=== PATIENT | male | born 1950 | race Caucasian/White ===

== ENCOUNTER 2018-01-08 17:52 | Inpatient (IN) | payer MEDICARE ==
[~2018-01-08] VITALS: Ht 185.4 cm; Wt 90.3 kg
--- NOTE | ~2018-01-08 | EC ---
PATIENT:JERAMY DUBOIS DATE OF SERVICE: 01/08/18 SEX: M MEDICAL RECORD: [id number] DATE OF : 54 LOCATION:D[facility] AGE OF PATIENT: 67 ADMISSION DATE: 01/08/18 REFERRING PHYSICIAN: INTERPRETING PHYSICIAN: JACOB PRICE MD ECHOCARDIOGRAM REPORT ECHO CHARGES 4 ECHO COMPLETE Date: 01/11 CLINICAL DIAGNOSIS: SEPESIS, ASSESS FOR ENDOCARDITIS ECHOCARDIOGRAPHIC MEASUREMENTS (adult normal given) AC root (d.<3.7cm) 4.1 cm LV Septum d (<1.2 cm> 1.3 cm Valve Excursion 1.9 cm LV Septum (systole) 1.4 cm Left Atria (s.<4.0cm> 4.4 cm LVPW d(<1.2cm) 1.3 cm RV (d.<2.3cm) 3.2 cm LVPW (sytole) 1.5 cm LV diastole(<5.6CM) 4.8 cm MV E-F(>70mm/sec) cm LV systole 2.8 cm LVOT Diameter 1.8 cm MV exc.(>10mm) 2.3 cm Est.ejection fraction (50-75%) % DOPPLER: LVIT cm/sec A 83.0 cm/sec E 74.0 cm/sec LA cm/sec RVSP 50 mmHg LVOT 108 cm/sec AOP1/2T m/s Asc. Ao 123 cm/sec RVOT 985 cm/sec RA cm/sec PA 122 cm/sec AV Gradient Peak 6.07 mmHg AV Mean 3.44 mmHg AV Area 1.9 cm MV Gradient Peak 6.19 mmHg MV Mean 2.35 mmHg MV Area cm COMMENTS: Account Auditor: Carolina QUIROGA Men'S Basketball Coach: 2 Dr. Cole TAPE# PACS Pericardial Effusion N DATE OF SERVICE: 01/10/2018 FINDINGS: 1. Left ventricular chamber size is within normal limits. Left ventricular systolic function is normal. Overall ejection fraction estimated at 60%. 2. Left atrium is mildly dilated at 4.4 cm. Right atrium and right ventricle chamber sizes are within normal limits. 3. Valvular structures have normal structure and motion. No evidence of vegetative endocarditis. 4. Doppler interrogation reveals mild mitral regurgitation, mild tricuspid ECHOCARDIOGRAM REPORT [id number] JERAMY DUBOIS regurgitation, no other valvular insufficiency or stenosis. Pulmonary systolic pressure is mildly elevated at 50 mmHg. 5. No evidence of pericardial effusion or left ventricular thrombus. TRANSINT:[id number] Voice Confirmation ID: [id number] DOCUMENT ID: [id number] JACOB PRICE MD at 1614 CC: [id number] DICTATION DATE: 01/10/18 1506 CORONARY CARE UNIT NURSE: 01/10/18 1520 ADM IN [facility] [address] [place] [address]
--- NOTE | ~2018-01-08 | CN ---
PATIENT NAME:JERAMY MOHAMUD MEDICAL RECORD: [id number] : 54 LOCATION:[facility] ADMIT DATE: 01/08/18 ACCOUNT: [id number] CONSULTING PHYSICIAN: ERIC SALAMANCA MD REFERRING PHYSICIAN: MARCI MARADIAGA MD DATE OF CONSULTATION: 01/09/2018 CONSULT REQUESTING PHYSICIAN: Marci Meyers MD REASON FOR CONSULTATION: Pneumonia, left lower lobe. HISTORY OF PRESENT ILLNESS: Mr. Mohamud is a 67-year-old gentleman who has functional quadriplegia. The patient was brought into the ER yesterday with somnolence, feeling weak, and confusion. Workup showed the patient has an infiltrate in the left lower lobe with significant leukocytosis. Now, the patient is not very communicative, history was taken by reviewing the patient's note and talking to Dr. Meyers. REVIEW OF SYSTEMS: As in history of present illness. PAST MEDICAL HISTORY: 1. Quadriplegia. 2. Anxiety, depression. PAST SURGICAL HISTORY: 1. He has halo and plate placement in the neck 9 years ago. 2. He has a PEG tube insertion and removal. ALLERGIES: No known drug allergy. MEDICATIONS: On Meetrics is reviewed. PERSONAL AND SOCIAL HISTORY: The patient is a nonsmoker, nondrinker. FAMILY HISTORY: Noncontributory. PHYSICAL EXAMINATION: GENERAL: Now, the patient is lying comfortably in bed. He is not in acute distress. VITAL SIGNS: The blood pressure is 119/59, pulse is 85, respirations 22, temperature 99, SPO2 92% on 3.5 liter nasal cannula. HEENT: Conjunctivae are pink. Sclerae are not icteric. NECK: Supple, no JVD. CHEST: The chest excursion is minimal on both sides. Crackles at the left base. No wheezing. HEART: Rhythm regular, normal sound, no murmur. ABDOMEN: Soft, bowel sounds present. No hepatosplenomegaly. RECTAL: Deferred. EXTREMITIES: No cyanosis, no clubbing. CENTRAL NERVOUS SYSTEM: The patient has functional quadriplegia. CHEST RADIOGRAPH: There is infiltrate in the left lower lobe. LABORATORY DATA: CBC: The WBC is 29.2, hemoglobin is 15.6, hematocrit 46.5, the platelet count is 239. Chemistry: Sodium 131, potassium 4.6, BUN is 34, CONSULT REPORT [id number] JERAMY MOHAMUD and creatinine 2.3. IMPRESSION: 1. Acute hypoxic respiratory failure. 2. Pneumonia, left lower lobe, most likely community-acquired pneumonia. 3. Leukocytosis secondary to pneumonia. 4. Chronic urinary tract infection. 5. Chronic kidney disease. 6. Kidney stone. RECOMMENDATIONS: 1. Continue the Rocephin and Levaquin IV. 2. Supplemental oxygen as required. 3. Followup labs and chest radiograph. 4. DVT prophylaxis. Dr. Maradiaga, thank you for involving me in the care of Mr. Mohamud. TRANSINT:[id number] Voice Confirmation ID: [id number] DOCUMENT ID: [id number] ERIC SALAMANCA MD at 1218 CC: [id number] DICTATION DATE: 01/09/181713 CATEGORY ANALYST: 01/09/18 1821 ADM IN [place] [id number] [place] [id number]
--- NOTE | ~2018-01-08 | OP ---
PATIENT NAME: JERAMY DUBOIS MEDICAL RECORD: [id number] :54 LOCATION:D[facility] D.2303 ADMISSION DATE:01/08/18 SURGEON: JOSE HOLLAND MD DATE OF OPERATION: 01/25/2018 PREOPERATIVE DIAGNOSES: 1. Acute malnutrition. 2. Ventilatory failure. 3. Pneumonia. POSTOPERATIVE DIAGNOSES: 1. Acute malnutrition. 2. Ventilatory failure. 3. Pneumonia. 4. Moderate auguste-gastritis with erosions. 5. Thick mucopurulent debris, mainly involving the right lung. PROCEDURES: 1. Esophagogastroduodenoscopy with antral biopsies. 2. Percutaneous endoscopic gastrostomy tube placement, 20 Croatian. 3. Diagnostic and therapeutic bronchoscopy with bronchoalveolar lavage. 4. Percutaneous tracheostomy placement, 8 mm. SURGEON: Jose Holland MD ASSEMBLER TRIM: None. BLOOD LOSS: Minimal. ANESTHESIA: General. COMPLICATIONS: None. The risks, possible complications and alternatives to procedure were explained to the patient. He elects to proceed. Discussion specifically included, but was not limited to, bleeding requiring emergency reoperation, infection, endoscopic perforation, gastrostomy tube dislodgement, tracheostomy tube dislodgement. OPERATIVE COURSE: The patient was conveyed to the operating room electively on 01/25/2018. General anesthesia was induced by the anesthesia staff. A bite-block was inserted. A gastroscope was inserted into the mouth. It was advanced easily into the hypopharynx. The esophagus was easily intubated as were the stomach and duodenum. Upon withdrawal, retroflexed and angulus views were obtained. Antral biopsies were obtained. I then cleansed the anterior abdominal wall skin. The patient had a prior gastrostomy tube. This area was infiltrated with a local anesthetic. A skin incision was accomplished. I then advanced an Angiocath down through the prior gastrostomy tube scar. I entered the stomach on the first try. A guidewire was advanced down through the Angiocath. This was grasped with an endoscopic snare and was withdrawn out through the mouth. The wire was then attached to a pull-type gastrostomy tube, which was then pulled into place. Hub and flange devices were attached. I re-endoscoped the patient's esophagus and stomach. There had been no evidence of false passage or perforation. OPERATIVE REPORT [id number] JERAMY DUBOIS Attention was then turned to placement of the tracheostomy tube. The bronchoscopic adapter was applied due to the endotracheal tube. A well-lubricated bronchoscope was advanced down the endotracheal tube. I first examined the right lung. The mucopurulent material was quite thick. I did a lot of lavage with normal saline. I did this until all of the segmental bronchi were freed of mucopurulent material. I then examined the left lung. There was not so much mucopurulent debris on the left side. I lavaged all the segmental bronchi until they were clear. I then returned to the open operation. A skin incision was closed after sterile prep and drape of the neck. This was a midline skin incision. It was a small incision. I dissected down to the trachea. I identified the second tracheal ring. A tracheal hook was applied in the cricoid cartilage to elevate the cricoid cartilage. I then had the nurse electronic maintenance supervisor withdraw the bronchoscope and the endotracheal tube as a unit. I indented the anterior wall of the trachea. I was able to visualize this bronchoscopically. I then punctured the anterior wall of the trachea below the second ring. I did this with an Angiocath. The guidewire was passed easily and this was passed in a caudad direction. I then dilated sequentially over the wire. A percutaneous tracheostomy tube that was placed on an introducer was advanced over the wire. This was advanced down to the trachea and the balloon was inflated. The introducer and the wire were removed. I then performed a bronchoscopy through the tracheostomy tube ensuring adequate placement. It was adequately placed. The inner cannula was applied as well as corrugated tubing and we began to ventilate the patient through the tracheostomy. The flange of the tracheostomy was sutured to the underlying skin with 2-0 nylons. I then closed some of the skin around the tracheostomy tube with 3-0 Vicryls. A fibrin glue material was then applied subcutaneously around the tracheostomy tube for additional hemostasis. The patient was then conveyed to the intensive care unit in critical, but stable condition. TRANSINT:[id number] Voice Confirmation ID: [id number] DOCUMENT ID: [id number] JOSE HOLLAND MD at 1840 CC: [id number] DICTATION DATE: 01/25/18 171 TIP PUNCHER: 01/25/18 1834 [facility] [address] [place] [address]
[~2018-01-08 17:52] MED LIST: AVODART0.5 MG PO; BACLOFEN20 M1 PO; CLEOCIN HCL300 MG PO; FLOMAX0.4 MG PO; HYDROCODONE-APA1 TAB PO; PHENERGAN25 M1 PO; REMERON15 MG PO; SOMA250 MG PO; XANAX0.25 MG PO
[2018-01-08] MEDS ORDERED: OMEPRAZOLE20 M1 PO (18:58)
[2018-01-08 19:00] VITALS: BP 108/56
[2018-01-08 20:00] VITALS: BP 111/57
[2018-01-08 21:00] VITALS: BP 108/57
[2018-01-08 21:18] LABS: ALBUMIN 2.7 g/dL (3.4-5.0); ANION GAP 14.8 mmol/L (8-16); BILIRUBIN - TOTAL 1.12 mg/dL (0.2-1.3); CALCIUM 9.4 mg/dL (8.5-10.1); CARBON DIOXIDE 27.8 mmol/L (21.0-32.0); CREATININE - SERUM 2.3 mg/dL (0.6-1.3); POTASSIUM - SERUM 4.6 mmol/L (3.5-5.1); PROTEIN - SERUM 7.5 g/dL (6.4-8.2)
[2018-01-08 21:46] LABS: APPEARANCE HAZY (CLEAR); BILIRUBIN NEGATIVE (NEGATIVE); COLOR YELLOW (YELLOW); GLUCOSE NEGATIVE (NEGATIVE); KETONE NEGATIVE (NEGATIVE); NITRITE POSITIVE (NEGATIVE); PROTEIN TRACE mg/dL (NEGATIVE); UROBILINOGEN NORMAL (NORMAL)
[2018-01-08 21:47] LABS: BACTERIA MANY /hpf (NONE SEEN)
[2018-01-08 21:50] LABS: HEMATOCRIT 46.5 % (42.0-54.0); HEMOGLOBIN 15.6 g/dL (13.5-17.5); MCH 29.9 pg (26.0-34.0); MCHC 33.5 g/dL (31.0-37.0); MCV 89.1 fL (80.0-100.0); MEAN PLATELET VOLUME 10.1 fL (7.4-10.4); PLATELET COUNT 239 10x3/uL (130-400); RBC 5.22 10x6/uL (4.20-6.10); RDW 13.9 % (11.5-14.5); WBC 29.2 10x3/uL (4.8-10.8)
[2018-01-08 22:00] VITALS: BP 108/62
[2018-01-08 22:44] LABS: EOSINOPHILS 3 % (0-7); LYMPHOCYTES 6 % (15-50); MONOCYTES 2 % (2-11); NEUTROPHILS 58 % (40-80); PLATELET ESTIMATE NORMAL
[2018-01-08 23:00] VITALS: BP 98/56
[2018-01-09] VITALS (7 sets, daily range): BP systolic 91–126; BP diastolic 45–59; Ht 185.4 cm; Wt 90.3 kg
[2018-01-10] VITALS (7 sets, daily range): BP systolic 106–154; BP diastolic 54–70
[2018-01-10 05:52] LABS: BASOPHILS 0 % (0-2); EOSINOPHILS 0.1 % (0-7); HEMATOCRIT 39.7 % (42.0-54.0); HEMOGLOBIN 13.2 g/dL (13.5-17.5); IMMATURE GRANULOCYTES 0.2 % (0-5); LYMPHOCYTES 3.2 % (15-50); MCH 29.2 pg (26.0-34.0); MCHC 33.2 g/dL (31.0-37.0); MCV 87.8 fL (80.0-100.0); MEAN PLATELET VOLUME 10.6 fL (7.4-10.4); MONOCYTES 2.4 % (2-11); NEUTROPHILS 94.1 % (40-80); PLATELET COUNT 195 10x3/uL (130-400); RBC 4.52 10x6/uL (4.20-6.10); RDW 14.2 % (11.5-14.5)
[2018-01-10 05:57] LABS: WBC 16.7 10x3/uL (4.8-10.8)
[2018-01-10 06:21] LABS: CALCIUM 7.9 mg/dL (8.5-10.1)
[2018-01-10 06:24] LABS: ANION GAP 15.4 mmol/L (8-16); CARBON DIOXIDE 20.5 mmol/L (21.0-32.0); CREATININE - SERUM 1.3 mg/dL (0.6-1.3); POTASSIUM - SERUM 3.9 mmol/L (3.5-5.1)
[2018-01-11 04:23] VITALS: BP 141/61
[2018-01-11 05:28] LABS: BASOPHILS 0.1 % (0-2); EOSINOPHILS 0.1 % (0-7); HEMATOCRIT 37.3 % (42.0-54.0); HEMOGLOBIN 12.3 g/dL (13.5-17.5); IMMATURE GRANULOCYTES 0.3 % (0-5); LYMPHOCYTES 10.6 % (15-50); MCH 28.5 pg (26.0-34.0); MCV 86.5 fL (80.0-100.0); MEAN PLATELET VOLUME 9.7 fL (7.4-10.4); MONOCYTES 5.8 % (2-11); NEUTROPHILS 83.1 % (40-80); RBC 4.31 10x6/uL (4.20-6.10); RDW 14.4 % (11.5-14.5); WBC 17.5 10x3/uL (4.8-10.8)
[2018-01-11 05:29] LABS: PLATELET COUNT 153 10x3/uL (130-400)
[2018-01-11 05:38] LABS: ANION GAP 10.7 mmol/L (8-16); CALCIUM 7.9 mg/dL (8.5-10.1); CARBON DIOXIDE 23.9 mmol/L (21.0-32.0); CREATININE - SERUM 1.1 mg/dL (0.6-1.3); POTASSIUM - SERUM 3.6 mmol/L (3.5-5.1)
[2018-01-11 08:45] VITALS: BP 113/57
[2018-01-11 12:50] VITALS: BP 136/71
[2018-01-11 16:25] VITALS: BP 136/71
[2018-01-11 20:00] VITALS: BP 138/70
[2018-01-12] VITALS (7 sets, daily range): BP systolic 89–162; BP diastolic 53–76
[2018-01-12 05:17] LABS: BASOPHILS 0.1 % (0-2); EOSINOPHILS 0.2 % (0-7); HEMATOCRIT 39.6 % (42.0-54.0); HEMOGLOBIN 13.3 g/dL (13.5-17.5); IMMATURE GRANULOCYTES 0.5 % (0-5); LYMPHOCYTES 7.5 % (15-50); MCH 28.9 pg (26.0-34.0); MCHC 33.6 g/dL (31.0-37.0); MCV 85.9 fL (80.0-100.0); MEAN PLATELET VOLUME 10.8 fL (7.4-10.4); MONOCYTES 6.8 % (2-11); NEUTROPHILS 84.9 % (40-80); PLATELET COUNT 166 10x3/uL (130-400); RBC 4.61 10x6/uL (4.20-6.10); RDW 14.7 % (11.5-14.5); WBC 16.9 10x3/uL (4.8-10.8)
[2018-01-12 05:32] LABS: CALC OSMOLALITY 291 mosm/kg (275-300); CALCIUM 8.2 mg/dL (8.5-10.1); CARBON DIOXIDE 25.6 mmol/L (21.0-32.0); CHLORIDE - SERUM 109 mmol/L (98-107); GLUCOSE 117 mg/dL (74-106); MAGNESIUM - SERUM 1.9 mg/dL (1.8-2.4); POTASSIUM - SERUM 3.3 mmol/L (3.5-5.1); SODIUM 145 mmol/L (136-145); UREA NITROGEN 17 mg/dL (7-18); eGFR NON AFRICAN AMERICAN 80 mL/min (90-120)
[2018-01-13] VITALS (72 sets, daily range): BP systolic 81–171; BP diastolic 50–88
[2018-01-13 05:59] LABS: BASOPHILS 0.1 % (0-2); EOSINOPHILS 0 % (0-7); HEMATOCRIT 40.2 % (42.0-54.0); HEMOGLOBIN 13.8 g/dL (13.5-17.5); IMMATURE GRANULOCYTES 0.4 % (0-5); LYMPHOCYTES 11.1 % (15-50); MCH 29.1 pg (26.0-34.0); MCHC 34.3 g/dL (31.0-37.0); MCV 84.8 fL (80.0-100.0); MEAN PLATELET VOLUME 10.6 fL (7.4-10.4); MONOCYTES 7.4 % (2-11); PLATELET COUNT 173 10x3/uL (130-400); RBC 4.74 10x6/uL (4.20-6.10); RDW 14.2 % (11.5-14.5); WBC 13.4 10x3/uL (4.8-10.8)
[2018-01-13 06:12] LABS: CALC OSMOLALITY 283 mosm/kg (275-300); CALCIUM 8.1 mg/dL (8.5-10.1); CARBON DIOXIDE 21.1 mmol/L (21.0-32.0); CHLORIDE - SERUM 104 mmol/L (98-107); GLUCOSE 110 mg/dL (74-106); MAGNESIUM - SERUM 1.9 mg/dL (1.8-2.4); POTASSIUM - SERUM 3.4 mmol/L (3.5-5.1); SODIUM 141 mmol/L (136-145); UREA NITROGEN 19 mg/dL (7-18); eGFR NON AFRICAN AMERICAN 80 mL/min (90-120)
[2018-01-14] VITALS (104 sets, daily range): BP systolic 83–125; BP diastolic 48–85
[2018-01-14 03:44] LABS: BASOPHILS 0.1 % (0-2); EOSINOPHILS 0.1 % (0-7); HEMATOCRIT 37.8 % (42.0-54.0); HEMOGLOBIN 12.6 g/dL (13.5-17.5); IMMATURE GRANULOCYTES 0.6 % (0-5); LYMPHOCYTES 8.1 % (15-50); MCH 28.9 pg (26.0-34.0); MCHC 33.3 g/dL (31.0-37.0); MCV 86.7 fL (80.0-100.0); MEAN PLATELET VOLUME 9.7 fL (7.4-10.4); NEUTROPHILS 84.1 % (40-80); PLATELET COUNT 184 10x3/uL (130-400); RBC 4.36 10x6/uL (4.20-6.10); RDW 15.3 % (11.5-14.5)
[2018-01-14 03:52] LABS: WBC 19.8 10x3/uL (4.8-10.8)
[2018-01-14 04:06] LABS: CALCIUM 7.3 mg/dL (8.5-10.1); CARBON DIOXIDE 24.5 mmol/L (21.0-32.0); CHLORIDE - SERUM 111 mmol/L (98-107); MAGNESIUM - SERUM 1.8 mg/dL (1.8-2.4); SODIUM 147 mmol/L (136-145); UREA NITROGEN 22 mg/dL (7-18); eGFR NON AFRICAN AMERICAN 80 mL/min (90-120)
[2018-01-14 04:08] LABS: CALC OSMOLALITY 298 mosm/kg (275-300); GLUCOSE 171 mg/dL (74-106); POTASSIUM - SERUM 2.6 mmol/L (3.5-5.1)
[2018-01-15] VITALS (97 sets, daily range): BP systolic 97–135; BP diastolic 59–90
[2018-01-15 05:25] LABS: HEMOGLOBIN 12.2 g/dL (13.5-17.5); MCH 28.7 pg (26.0-34.0); MCHC 33.9 g/dL (31.0-37.0); MCV 84.7 fL (80.0-100.0); MEAN PLATELET VOLUME 11.4 fL (7.4-10.4); PLATELET COUNT 254 10x3/uL (130-400); RBC 4.25 10x6/uL (4.20-6.10); RDW 15.3 % (11.5-14.5); WBC 21.1 10x3/uL (4.8-10.8)
[2018-01-15 05:56] LABS: LYMPHOCYTES 11 % (15-50); MONOCYTES 3 % (2-11); NEUTROPHILS 81 % (40-80); PLATELET ESTIMATE NORMAL
[2018-01-15 05:58] LABS: ALBUMIN 1.4 g/dL (3.4-5.0); ALKALINE PHOSPHATASE 126 U/L (46-116); ALT (SGPT) 26 U/L (10-68); BILIRUBIN - TOTAL 0.47 mg/dL (0.2-1.3); CALC OSMOLALITY 293 mosm/kg (275-300); CARBON DIOXIDE 23.4 mmol/L (21.0-32.0); CHLORIDE - SERUM 110 mmol/L (98-107); CREATININE - SERUM 0.9 mg/dL (0.6-1.3); GLUCOSE 163 mg/dL (74-106); POTASSIUM - SERUM 3.7 mmol/L (3.5-5.1); PROTEIN - SERUM 4.7 g/dL (6.4-8.2); SODIUM 145 mmol/L (136-145); eGFR NON AFRICAN AMERICAN 90 mL/min (90-120)
[2018-01-15 05:59] LABS: UREA NITROGEN 16 mg/dL (7-18)
[2018-01-16] VITALS (99 sets, daily range): BP systolic 81–130; BP diastolic 47–75
[2018-01-16 04:23] LABS: BASOPHILS 0.1 % (0-2); HEMATOCRIT 32.6 % (42.0-54.0); IMMATURE GRANULOCYTES 0.4 % (0-5); LYMPHOCYTES 10.5 % (15-50); MCH 28.5 pg (26.0-34.0); MCHC 33.7 g/dL (31.0-37.0); MCV 84.5 fL (80.0-100.0); MEAN PLATELET VOLUME 10.7 fL (7.4-10.4); MONOCYTES 3.8 % (2-11); NEUTROPHILS 83.2 % (40-80); PLATELET COUNT 269 10x3/uL (130-400); RBC 3.86 10x6/uL (4.20-6.10); WBC 20.6 10x3/uL (4.8-10.8)
[2018-01-16 04:40] LABS: ALKALINE PHOSPHATASE 113 U/L (46-116); ALT (SGPT) 30 U/L (10-68); BILIRUBIN - TOTAL 0.58 mg/dL (0.2-1.3); CALCIUM 7.5 mg/dL (8.5-10.1); CARBON DIOXIDE 23.9 mmol/L (21.0-32.0); CHLORIDE - SERUM 114 mmol/L (98-107); CREATININE - SERUM 0.8 mg/dL (0.6-1.3); GLUCOSE 118 mg/dL (74-106); PHOSPHOROUS 1.9 mg/dL (2.5-4.9); PROTEIN - SERUM 5.5 g/dL (6.4-8.2); SODIUM 147 mmol/L (136-145); eGFR NON AFRICAN AMERICAN > 90 mL/min (90-120)
[2018-01-16 04:49] LABS: CALC OSMOLALITY 291 mosm/kg (275-300); UREA NITROGEN 11 mg/dL (7-18)
[2018-01-16 04:50] LABS: ALBUMIN 1.8 g/dL (3.4-5.0); POTASSIUM - SERUM 2.9 mmol/L (3.5-5.1)
[2018-01-17] VITALS (78 sets, daily range): BP systolic 84–126; BP diastolic 42–97
[2018-01-17 03:24] LABS: BASOPHILS 0.1 % (0-2); EOSINOPHILS 2.7 % (0-7); HEMATOCRIT 29.8 % (42.0-54.0); HEMOGLOBIN 9.9 g/dL (13.5-17.5); IMMATURE GRANULOCYTES 0.4 % (0-5); LYMPHOCYTES 9.6 % (15-50); MCH 28.3 pg (26.0-34.0); MCHC 33.2 g/dL (31.0-37.0); MCV 85.1 fL (80.0-100.0); MEAN PLATELET VOLUME 10.4 fL (7.4-10.4); MONOCYTES 4.9 % (2-11); NEUTROPHILS 82.3 % (40-80); PLATELET COUNT 316 10x3/uL (130-400); WBC 18.8 10x3/uL (4.8-10.8)
[2018-01-17 03:37] LABS: ALBUMIN 2.5 g/dL (3.4-5.0); ALKALINE PHOSPHATASE 90 U/L (46-116); ALT (SGPT) 25 U/L (10-68); BILIRUBIN - TOTAL 1.01 mg/dL (0.2-1.3); CALC OSMOLALITY 292 mosm/kg (275-300); CALCIUM 7.9 mg/dL (8.5-10.1); CHLORIDE - SERUM 114 mmol/L (98-107); CREATININE - SERUM 0.8 mg/dL (0.6-1.3); GLUCOSE 111 mg/dL (74-106); MAGNESIUM - SERUM 2.3 mg/dL (1.8-2.4); PHOSPHOROUS 3.1 mg/dL (2.5-4.9); POTASSIUM - SERUM 3.9 mmol/L (3.5-5.1); PROTEIN - SERUM 5.8 g/dL (6.4-8.2); SODIUM 146 mmol/L (136-145); UREA NITROGEN 15 mg/dL (7-18); eGFR NON AFRICAN AMERICAN > 90 mL/min (90-120)
[2018-01-18] VITALS (24 sets, daily range): BP systolic 92–134; BP diastolic 51–83
[2018-01-18 04:21] LABS: BASOPHILS 0.3 % (0-2); HEMATOCRIT 31.3 % (42.0-54.0); HEMOGLOBIN 10.3 g/dL (13.5-17.5); IMMATURE GRANULOCYTES 0.7 % (0-5); LYMPHOCYTES 9.6 % (15-50); MCH 28.4 pg (26.0-34.0); MCHC 32.9 g/dL (31.0-37.0); MCV 86.2 fL (80.0-100.0); MEAN PLATELET VOLUME 10.6 fL (7.4-10.4); NEUTROPHILS 79.4 % (40-80); RBC 3.63 10x6/uL (4.20-6.10); WBC 18.9 10x3/uL (4.8-10.8)
[2018-01-18 04:23] LABS: PLATELET COUNT 411 10x3/uL (130-400)
[2018-01-18 04:54] LABS: CALC OSMOLALITY 288 mosm/kg (275-300); CALCIUM 8.2 mg/dL (8.5-10.1); CARBON DIOXIDE 21.1 mmol/L (21.0-32.0); CHLORIDE - SERUM 114 mmol/L (98-107); CREATININE - SERUM 0.6 mg/dL (0.6-1.3); FERRITIN 238 ng/mL (3-244); GLUCOSE 105 mg/dL (74-106); POTASSIUM - SERUM 3.6 mmol/L (3.5-5.1); SODIUM 145 mmol/L (136-145); UREA NITROGEN 13 mg/dL (7-18); eGFR NON AFRICAN AMERICAN > 90 mL/min (90-120)
[2018-01-18 05:03] LABS: % SATURATION 11 % (15-55); IRON 11 ug/dl (35-150); TOTAL IRON BIND CAPACITY 97 ug/dl (260-445); UNSAT IRON BIND CAPACITY 86 ug/dl (150-375)
[2018-01-18 06:14] LABS: RAPID PLASMA REAGIN Non Reactive (Non Reactive)
[2018-01-19] VITALS (29 sets, daily range): BP systolic 93–132; BP diastolic 50–76
[2018-01-19 05:47] LABS: BASOPHILS 0.3 % (0-2); EOSINOPHILS 2.8 % (0-7); HEMATOCRIT 28.8 % (42.0-54.0); HEMOGLOBIN 9.3 g/dL (13.5-17.5); IMMATURE GRANULOCYTES 0.6 % (0-5); LYMPHOCYTES 9.2 % (15-50); MCH 27.9 pg (26.0-34.0); MCHC 32.3 g/dL (31.0-37.0); MCV 86.5 fL (80.0-100.0); MEAN PLATELET VOLUME 10.5 fL (7.4-10.4); MONOCYTES 7.8 % (2-11); NEUTROPHILS 79.3 % (40-80); PLATELET COUNT 467 10x3/uL (130-400); RBC 3.33 10x6/uL (4.20-6.10); RDW 14.9 % (11.5-14.5); WBC 15.1 10x3/uL (4.8-10.8)
[2018-01-19 06:01] LABS: CALC OSMOLALITY 289 mosm/kg (275-300); CALCIUM 8.2 mg/dL (8.5-10.1); CARBON DIOXIDE 20.1 mmol/L (21.0-32.0); CHLORIDE - SERUM 111 mmol/L (98-107); CREATININE - SERUM 0.7 mg/dL (0.6-1.3); GLUCOSE 106 mg/dL (74-106); POTASSIUM - SERUM 3.3 mmol/L (3.5-5.1); SODIUM 145 mmol/L (136-145); UREA NITROGEN 15 mg/dL (7-18); VANCOMYCIN - RANDOM 14.2 ug/mL (10.0-20.0); eGFR NON AFRICAN AMERICAN > 90 mL/min (90-120)
[2018-01-20] VITALS (24 sets, daily range): BP systolic 96–120; BP diastolic 50–68
[2018-01-20 04:57] LABS: BASOPHILS 0.1 % (0-2); EOSINOPHILS 1.4 % (0-7); HEMATOCRIT 26.9 % (42.0-54.0); HEMOGLOBIN 8.7 g/dL (13.5-17.5); IMMATURE GRANULOCYTES 0.6 % (0-5); LYMPHOCYTES 5.8 % (15-50); MCH 28.1 pg (26.0-34.0); MCHC 32.3 g/dL (31.0-37.0); MCV 86.8 fL (80.0-100.0); MONOCYTES 6.6 % (2-11); NEUTROPHILS 85.5 % (40-80); PLATELET COUNT 417 10x3/uL (130-400); RDW 15.1 % (11.5-14.5); WBC 14.2 10x3/uL (4.8-10.8)
[2018-01-20 05:05] LABS: CALC OSMOLALITY 293 mosm/kg (275-300); CALCIUM 8.5 mg/dL (8.5-10.1); CARBON DIOXIDE 22.9 mmol/L (21.0-32.0); CHLORIDE - SERUM 113 mmol/L (98-107); GLUCOSE 146 mg/dL (74-106); SODIUM 145 mmol/L (136-145); UREA NITROGEN 17 mg/dL (7-18)
[2018-01-20 05:21] LABS: CREATININE - SERUM 0.5 mg/dL (0.6-1.3); eGFR NON AFRICAN AMERICAN > 90 mL/min (90-120)
[2018-01-21] VITALS (24 sets, daily range): BP systolic 91–127; BP diastolic 51–64
[2018-01-21 04:39] LABS: BASOPHILS 0.5 % (0-2); EOSINOPHILS 3.7 % (0-7); HEMATOCRIT 25.4 % (42.0-54.0); HEMOGLOBIN 8.2 g/dL (13.5-17.5); IMMATURE GRANULOCYTES 0.8 % (0-5); LYMPHOCYTES 15.7 % (15-50); MCH 28.3 pg (26.0-34.0); MCHC 32.3 g/dL (31.0-37.0); MCV 87.6 fL (80.0-100.0); MEAN PLATELET VOLUME 10.1 fL (7.4-10.4); NEUTROPHILS 69.3 % (40-80); PLATELET COUNT 433 10x3/uL (130-400); RDW 15.5 % (11.5-14.5); WBC 11.9 10x3/uL (4.8-10.8)
[2018-01-21 04:49] LABS: CALC OSMOLALITY 290 mosm/kg (275-300); CALCIUM 7.6 mg/dL (8.5-10.1); CARBON DIOXIDE 21.5 mmol/L (21.0-32.0); CHLORIDE - SERUM 114 mmol/L (98-107); CREATININE - SERUM 0.6 mg/dL (0.6-1.3); GLUCOSE 99 mg/dL (74-106); MAGNESIUM - SERUM 2.1 mg/dL (1.8-2.4); POTASSIUM - SERUM 3.3 mmol/L (3.5-5.1); SODIUM 146 mmol/L (136-145); UREA NITROGEN 13 mg/dL (7-18); eGFR NON AFRICAN AMERICAN > 90 mL/min (90-120)
[2018-01-21 05:20] LABS: PHOSPHOROUS 1.4 mg/dL (2.5-4.9)
[2018-01-22] VITALS (25 sets, daily range): BP systolic 95–130; BP diastolic 50–74
[2018-01-22 04:12] LABS: BASOPHILS 0.5 % (0-2); EOSINOPHILS 2.4 % (0-7); HEMATOCRIT 25.9 % (42.0-54.0); HEMOGLOBIN 8.4 g/dL (13.5-17.5); LYMPHOCYTES 8.3 % (15-50); MCH 28.4 pg (26.0-34.0); MCHC 32.4 g/dL (31.0-37.0); MCV 87.5 fL (80.0-100.0); MEAN PLATELET VOLUME 10.2 fL (7.4-10.4); NEUTROPHILS 82.8 % (40-80); PLATELET COUNT 490 10x3/uL (130-400); RBC 2.96 10x6/uL (4.20-6.10); WBC 12.1 10x3/uL (4.8-10.8)
[2018-01-22 04:28] LABS: CALC OSMOLALITY 289 mosm/kg (275-300); CALCIUM 7.8 mg/dL (8.5-10.1); CARBON DIOXIDE 23.5 mmol/L (21.0-32.0); CHLORIDE - SERUM 114 mmol/L (98-107); CREATININE - SERUM 0.6 mg/dL (0.6-1.3); GLUCOSE 108 mg/dL (74-106); MAGNESIUM - SERUM 2.2 mg/dL (1.8-2.4); SODIUM 145 mmol/L (136-145); UREA NITROGEN 13 mg/dL (7-18); eGFR NON AFRICAN AMERICAN > 90 mL/min (90-120)
[2018-01-22 04:32] LABS: POTASSIUM - SERUM 3.4 mmol/L (3.5-5.1)
[2018-01-22 17:13] LABS: AFB SPECIMEN PROCESSING Concentration (())
[2018-01-23] VITALS (24 sets, daily range): BP systolic 96–165; BP diastolic 51–90
[2018-01-23 04:01] LABS: BASOPHILS 0.4 % (0-2); EOSINOPHILS 1.5 % (0-7); HEMATOCRIT 25.7 % (42.0-54.0); HEMOGLOBIN 8.4 g/dL (13.5-17.5); IMMATURE GRANULOCYTES 0.9 % (0-5); LYMPHOCYTES 8.1 % (15-50); MCH 28.8 pg (26.0-34.0); MCHC 32.7 g/dL (31.0-37.0); NEUTROPHILS 85.1 % (40-80); PLATELET COUNT 480 10x3/uL (130-400); RBC 2.92 10x6/uL (4.20-6.10); RDW 15.9 % (11.5-14.5); WBC 12.2 10x3/uL (4.8-10.8)
[2018-01-23 04:17] LABS: CALC OSMOLALITY 291 mosm/kg (275-300); CALCIUM 7.4 mg/dL (8.5-10.1); CARBON DIOXIDE 23.3 mmol/L (21.0-32.0); CHLORIDE - SERUM 114 mmol/L (98-107); CREATININE - SERUM 0.5 mg/dL (0.6-1.3); GLUCOSE 113 mg/dL (74-106); MAGNESIUM - SERUM 1.9 mg/dL (1.8-2.4); PHOSPHOROUS 1.7 mg/dL (2.5-4.9); POTASSIUM - SERUM 2.9 mmol/L (3.5-5.1); SODIUM 146 mmol/L (136-145); UREA NITROGEN 12 mg/dL (7-18); eGFR NON AFRICAN AMERICAN > 90 mL/min (90-120)
[2018-01-23 10:19] LABS: FUNGUS STAIN Final report (())
[2018-01-24] VITALS (24 sets, daily range): BP systolic 90–134; BP diastolic 51–80
[2018-01-24 04:11] LABS: BASOPHILS 0.5 % (0-2); EOSINOPHILS 1.1 % (0-7); HEMATOCRIT 25.3 % (42.0-54.0); HEMOGLOBIN 8.1 g/dL (13.5-17.5); IMMATURE GRANULOCYTES 0.8 % (0-5); MCH 28.2 pg (26.0-34.0); MCV 88.2 fL (80.0-100.0); MEAN PLATELET VOLUME 10.3 fL (7.4-10.4); MONOCYTES 2.6 % (2-11); PLATELET COUNT 504 10x3/uL (130-400); RBC 2.87 10x6/uL (4.20-6.10); RDW 16.2 % (11.5-14.5); WBC 13.2 10x3/uL (4.8-10.8)
[2018-01-24 04:20] LABS: CALC OSMOLALITY 289 mosm/kg (275-300); CALCIUM 7.6 mg/dL (8.5-10.1); CARBON DIOXIDE 24.5 mmol/L (21.0-32.0); CHLORIDE - SERUM 112 mmol/L (98-107); CREATININE - SERUM 0.5 mg/dL (0.6-1.3); GLUCOSE 109 mg/dL (74-106); SODIUM 145 mmol/L (136-145); UREA NITROGEN 12 mg/dL (7-18); eGFR NON AFRICAN AMERICAN > 90 mL/min (90-120)
[2018-01-24 04:21] LABS: POTASSIUM - SERUM 2.7 mmol/L (3.5-5.1)
[2018-01-25] VITALS (19 sets, daily range): BP systolic 107–141; BP diastolic 59–74
[2018-01-25 04:27] LABS: BASOPHILS 0.6 % (0-2); EOSINOPHILS 1.8 % (0-7); HEMATOCRIT 24.7 % (42.0-54.0); HEMOGLOBIN 7.9 g/dL (13.5-17.5); IMMATURE GRANULOCYTES 0.8 % (0-5); LYMPHOCYTES 6.4 % (15-50); MCV 87.6 fL (80.0-100.0); MEAN PLATELET VOLUME 9.8 fL (7.4-10.4); MONOCYTES 6.3 % (2-11); NEUTROPHILS 84.1 % (40-80); PLATELET COUNT 455 10x3/uL (130-400); RBC 2.82 10x6/uL (4.20-6.10); RDW 16.4 % (11.5-14.5); WBC 12.4 10x3/uL (4.8-10.8)
[2018-01-25 04:55] LABS: CALC OSMOLALITY 293 mosm/kg (275-300); CARBON DIOXIDE 22.9 mmol/L (21.0-32.0); CREATININE - SERUM 0.5 mg/dL (0.6-1.3); GLUCOSE 100 mg/dL (74-106); MAGNESIUM - SERUM 2.2 mg/dL (1.8-2.4); POTASSIUM - SERUM 3.2 mmol/L (3.5-5.1); SODIUM 148 mmol/L (136-145); UREA NITROGEN 12 mg/dL (7-18); eGFR NON AFRICAN AMERICAN > 90 mL/min (90-120)
[2018-01-25 04:58] LABS: CHLORIDE - SERUM 116 mmol/L (98-107)
[2018-01-26] VITALS (22 sets, daily range): BP systolic 118–177; BP diastolic 60–98
[2018-01-26 03:46] LABS: BASOPHILS 1.3 % (0-2); EOSINOPHILS 4.8 % (0-7); HEMATOCRIT 24.1 % (42.0-54.0); HEMOGLOBIN 7.7 g/dL (13.5-17.5); IMMATURE GRANULOCYTES 0.6 % (0-5); LYMPHOCYTES 11.3 % (15-50); MCH 28.2 pg (26.0-34.0); MCV 88.3 fL (80.0-100.0); MEAN PLATELET VOLUME 9.7 fL (7.4-10.4); MONOCYTES 6.7 % (2-11); NEUTROPHILS 75.3 % (40-80); PLATELET COUNT 451 10x3/uL (130-400); RBC 2.73 10x6/uL (4.20-6.10); RDW 16.5 % (11.5-14.5); WBC 9.4 10x3/uL (4.8-10.8)
[2018-01-26 03:57] LABS: CALC OSMOLALITY 289 mosm/kg (275-300); CALCIUM 8.4 mg/dL (8.5-10.1); CARBON DIOXIDE 21.3 mmol/L (21.0-32.0); CHLORIDE - SERUM 115 mmol/L (98-107); CREATININE - SERUM 0.5 mg/dL (0.6-1.3); GLUCOSE 81 mg/dL (74-106); MAGNESIUM - SERUM 2.1 mg/dL (1.8-2.4); POTASSIUM - SERUM 2.8 mmol/L (3.5-5.1); SODIUM 147 mmol/L (136-145); UREA NITROGEN 11 mg/dL (7-18); eGFR NON AFRICAN AMERICAN > 90 mL/min (90-120)
[2018-01-27] VITALS (24 sets, daily range): BP systolic 118–175; BP diastolic 63–134
[2018-01-27 04:51] LABS: EOSINOPHILS 1.2 % (0-7); HEMATOCRIT 26.2 % (42.0-54.0); HEMOGLOBIN 8.2 g/dL (13.5-17.5); IMMATURE GRANULOCYTES 0.6 % (0-5); LYMPHOCYTES 11.5 % (15-50); MCH 27.3 pg (26.0-34.0); MCHC 31.3 g/dL (31.0-37.0); MCV 87.3 fL (80.0-100.0); MONOCYTES 8.5 % (2-11); NEUTROPHILS 77.2 % (40-80); PLATELET COUNT 428 10x3/uL (130-400); RDW 16.8 % (11.5-14.5); WBC 8.4 10x3/uL (4.8-10.8)
[2018-01-27 05:10] LABS: CALC OSMOLALITY 293 mosm/kg (275-300); CALCIUM 8.5 mg/dL (8.5-10.1); CARBON DIOXIDE 17.8 mmol/L (21.0-32.0); CHLORIDE - SERUM 114 mmol/L (98-107); CREATININE - SERUM 0.5 mg/dL (0.6-1.3); GLUCOSE 79 mg/dL (74-106); MAGNESIUM - SERUM 2.3 mg/dL (1.8-2.4); POTASSIUM - SERUM 3.3 mmol/L (3.5-5.1); SODIUM 149 mmol/L (136-145); UREA NITROGEN 10 mg/dL (7-18); eGFR NON AFRICAN AMERICAN > 90 mL/min (90-120)
[2018-01-28] VITALS (22 sets, daily range): BP systolic 113–172; BP diastolic 69–90
[2018-01-28 04:34] LABS: BASOPHILS 0.4 % (0-2); EOSINOPHILS 1.4 % (0-7); HEMATOCRIT 25.7 % (42.0-54.0); HEMOGLOBIN 8.1 g/dL (13.5-17.5); IMMATURE GRANULOCYTES 0.5 % (0-5); LYMPHOCYTES 13.1 % (15-50); MCH 27.6 pg (26.0-34.0); MCHC 31.5 g/dL (31.0-37.0); MCV 87.4 fL (80.0-100.0); MEAN PLATELET VOLUME 10.2 fL (7.4-10.4); MONOCYTES 8.5 % (2-11); NEUTROPHILS 76.1 % (40-80); PLATELET COUNT 372 10x3/uL (130-400); RBC 2.94 10x6/uL (4.20-6.10); RDW 16.7 % (11.5-14.5); WBC 10.5 10x3/uL (4.8-10.8)
[2018-01-28 04:52] LABS: CALCIUM 8.5 mg/dL (8.5-10.1); CREATININE - SERUM 0.6 mg/dL (0.6-1.3); SODIUM 150 mmol/L (136-145); eGFR NON AFRICAN AMERICAN > 90 mL/min (90-120)
[2018-01-28 04:55] LABS: CALC OSMOLALITY 298 mosm/kg (275-300); CARBON DIOXIDE 24.7 mmol/L (21.0-32.0); CHLORIDE - SERUM 116 mmol/L (98-107); GLUCOSE 123 mg/dL (74-106); POTASSIUM - SERUM 3.1 mmol/L (3.5-5.1); UREA NITROGEN 13 mg/dL (7-18)
[2018-01-29] VITALS (24 sets, daily range): BP systolic 103–177; BP diastolic 58–116
[2018-01-29 04:58] LABS: BASOPHILS 0.2 % (0-2); EOSINOPHILS 0.8 % (0-7); HEMATOCRIT 25.5 % (42.0-54.0); IMMATURE GRANULOCYTES 0.4 % (0-5); LYMPHOCYTES 9.1 % (15-50); MCH 27.4 pg (26.0-34.0); MCHC 31.4 g/dL (31.0-37.0); MCV 87.3 fL (80.0-100.0); MEAN PLATELET VOLUME 9.9 fL (7.4-10.4); NEUTROPHILS 85.5 % (40-80); PLATELET COUNT 349 10x3/uL (130-400); RBC 2.92 10x6/uL (4.20-6.10); RDW 16.5 % (11.5-14.5); WBC 12.4 10x3/uL (4.8-10.8)
[2018-01-29 05:04] LABS: CALC OSMOLALITY 304 mosm/kg (275-300); CALCIUM 8.6 mg/dL (8.5-10.1); CARBON DIOXIDE 25.5 mmol/L (21.0-32.0); CREATININE - SERUM 0.5 mg/dL (0.6-1.3); GLUCOSE 128 mg/dL (74-106); MAGNESIUM - SERUM 2.3 mg/dL (1.8-2.4); POTASSIUM - SERUM 3.1 mmol/L (3.5-5.1); SODIUM 152 mmol/L (136-145); UREA NITROGEN 16 mg/dL (7-18); eGFR NON AFRICAN AMERICAN > 90 mL/min (90-120)
[2018-01-29 05:05] LABS: CHLORIDE - SERUM 116 mmol/L (98-107)
[2018-01-30] VITALS (24 sets, daily range): BP systolic 97–135; BP diastolic 57–79
[2018-01-30 05:07] LABS: BASOPHILS 0.3 % (0-2); EOSINOPHILS 4.1 % (0-7); HEMATOCRIT 25.2 % (42.0-54.0); HEMOGLOBIN 7.9 g/dL (13.5-17.5); IMMATURE GRANULOCYTES 0.5 % (0-5); LYMPHOCYTES 20.5 % (15-50); MCH 27.7 pg (26.0-34.0); MCHC 31.3 g/dL (31.0-37.0); MCV 88.4 fL (80.0-100.0); MONOCYTES 7.7 % (2-11); NEUTROPHILS 66.9 % (40-80); PLATELET COUNT 304 10x3/uL (130-400); RBC 2.85 10x6/uL (4.20-6.10); RDW 16.9 % (11.5-14.5); WBC 10.9 10x3/uL (4.8-10.8)
[2018-01-30 05:31] LABS: CALC OSMOLALITY 299 mosm/kg (275-300); CARBON DIOXIDE 25.1 mmol/L (21.0-32.0); CREATININE - SERUM 0.6 mg/dL (0.6-1.3); GLUCOSE 111 mg/dL (74-106); MAGNESIUM - SERUM 2.1 mg/dL (1.8-2.4); POTASSIUM - SERUM 3.5 mmol/L (3.5-5.1); SODIUM 149 mmol/L (136-145); UREA NITROGEN 20 mg/dL (7-18); eGFR NON AFRICAN AMERICAN > 90 mL/min (90-120)
[2018-01-30 05:45] LABS: CHLORIDE - SERUM 116 mmol/L (98-107)
[2018-01-31] VITALS (24 sets, daily range): BP systolic 97–161; BP diastolic 51–86
[2018-01-31 04:23] LABS: BASOPHILS 0.3 % (0-2); EOSINOPHILS 4.6 % (0-7); HEMATOCRIT 26.9 % (42.0-54.0); HEMOGLOBIN 8.4 g/dL (13.5-17.5); IMMATURE GRANULOCYTES 0.4 % (0-5); LYMPHOCYTES 9.5 % (15-50); MCH 27.6 pg (26.0-34.0); MCHC 31.2 g/dL (31.0-37.0); MCV 88.5 fL (80.0-100.0); NEUTROPHILS 79.2 % (40-80); PLATELET COUNT 310 10x3/uL (130-400); RBC 3.04 10x6/uL (4.20-6.10); RDW 16.6 % (11.5-14.5); WBC 11.1 10x3/uL (4.8-10.8)
[2018-01-31 04:44] LABS: CALC OSMOLALITY 296 mosm/kg (275-300); CALCIUM 7.9 mg/dL (8.5-10.1); CARBON DIOXIDE 27.6 mmol/L (21.0-32.0); CHLORIDE - SERUM 113 mmol/L (98-107); GLUCOSE 105 mg/dL (74-106); MAGNESIUM - SERUM 2.1 mg/dL (1.8-2.4); POTASSIUM - SERUM 3.6 mmol/L (3.5-5.1); SODIUM 148 mmol/L (136-145); UREA NITROGEN 21 mg/dL (7-18)
[2018-01-31 05:11] LABS: PHOSPHOROUS 1.4 mg/dL (2.5-4.9)
[2018-01-31 05:12] LABS: CREATININE - SERUM 0.4 mg/dL (0.6-1.3); eGFR NON AFRICAN AMERICAN > 90 mL/min (90-120)
[2018-02-01] VITALS (24 sets, daily range): BP systolic 111–158; BP diastolic 54–94
[2018-02-01 04:28] LABS: BASOPHILS 0.2 % (0-2); EOSINOPHILS 4.2 % (0-7); HEMATOCRIT 27.5 % (42.0-54.0); HEMOGLOBIN 8.7 g/dL (13.5-17.5); IMMATURE GRANULOCYTES 0.6 % (0-5); LYMPHOCYTES 9.4 % (15-50); MCH 27.6 pg (26.0-34.0); MCHC 31.6 g/dL (31.0-37.0); MCV 87.3 fL (80.0-100.0); MEAN PLATELET VOLUME 10.2 fL (7.4-10.4); MONOCYTES 5.8 % (2-11); NEUTROPHILS 79.8 % (40-80); PLATELET COUNT 285 10x3/uL (130-400); RBC 3.15 10x6/uL (4.20-6.10); RDW 16.4 % (11.5-14.5); WBC 12.4 10x3/uL (4.8-10.8)
[2018-02-01 04:38] LABS: CALC OSMOLALITY 293 mosm/kg (275-300); CALCIUM 7.8 mg/dL (8.5-10.1); CARBON DIOXIDE 27.6 mmol/L (21.0-32.0); CHLORIDE - SERUM 111 mmol/L (98-107); CREATININE - SERUM 0.5 mg/dL (0.6-1.3); GLUCOSE 115 mg/dL (74-106); POTASSIUM - SERUM 3.4 mmol/L (3.5-5.1); SODIUM 147 mmol/L (136-145); UREA NITROGEN 16 mg/dL (7-18); eGFR NON AFRICAN AMERICAN > 90 mL/min (90-120)
[2018-02-01 05:45] LABS: MAGNESIUM - SERUM 2.1 mg/dL (1.8-2.4)
[2018-02-01 05:47] LABS: PHOSPHOROUS 2.6 mg/dL (2.5-4.9)
[2018-02-02] VITALS (24 sets, daily range): BP systolic 108–164; BP diastolic 53–103
[2018-02-03] VITALS (25 sets, daily range): BP systolic 88–148; BP diastolic 49–101
[2018-02-03 04:57] LABS: BASOPHILS 0.2 % (0-2); EOSINOPHILS 3.4 % (0-7); HEMATOCRIT 26.2 % (42.0-54.0); HEMOGLOBIN 8.2 g/dL (13.5-17.5); IMMATURE GRANULOCYTES 0.6 % (0-5); LYMPHOCYTES 18.9 % (15-50); MCH 27.5 pg (26.0-34.0); MCHC 31.3 g/dL (31.0-37.0); MCV 87.9 fL (80.0-100.0); MEAN PLATELET VOLUME 10.1 fL (7.4-10.4); MONOCYTES 7.3 % (2-11); NEUTROPHILS 69.6 % (40-80); PLATELET COUNT 258 10x3/uL (130-400); RBC 2.98 10x6/uL (4.20-6.10); RDW 15.9 % (11.5-14.5); WBC 10.1 10x3/uL (4.8-10.8)
[2018-02-03 05:05] LABS: CALC OSMOLALITY 284 mosm/kg (275-300); CARBON DIOXIDE 29.3 mmol/L (21.0-32.0); CHLORIDE - SERUM 107 mmol/L (98-107); CREATININE - SERUM 0.4 mg/dL (0.6-1.3); GLUCOSE 103 mg/dL (74-106); POTASSIUM - SERUM 3.4 mmol/L (3.5-5.1); SODIUM 143 mmol/L (136-145); UREA NITROGEN 12 mg/dL (7-18); eGFR NON AFRICAN AMERICAN > 90 mL/min (90-120)
[2018-02-04] VITALS (17 sets, daily range): BP systolic 91–146; BP diastolic 51–551
[2018-02-04 03:55] LABS: BASOPHILS 0.3 % (0-2); EOSINOPHILS 2.3 % (0-7); HEMATOCRIT 27.2 % (42.0-54.0); HEMOGLOBIN 8.4 g/dL (13.5-17.5); IMMATURE GRANULOCYTES 0.3 % (0-5); LYMPHOCYTES 22.5 % (15-50); MCH 27.3 pg (26.0-34.0); MCHC 30.9 g/dL (31.0-37.0); MCV 88.3 fL (80.0-100.0); MEAN PLATELET VOLUME 10.4 fL (7.4-10.4); MONOCYTES 8.6 % (2-11); PLATELET COUNT 279 10x3/uL (130-400); RBC 3.08 10x6/uL (4.20-6.10); RDW 15.8 % (11.5-14.5)
[2018-02-04 04:16] LABS: ALBUMIN 2.7 g/dL (3.4-5.0); ALKALINE PHOSPHATASE 79 U/L (46-116); ALT (SGPT) 16 U/L (10-68); BILIRUBIN - TOTAL 0.23 mg/dL (0.2-1.3); CALC OSMOLALITY 280 mosm/kg (275-300); CALCIUM 8.4 mg/dL (8.5-10.1); CARBON DIOXIDE 29.2 mmol/L (21.0-32.0); CHLORIDE - SERUM 109 mmol/L (98-107); GLUCOSE 105 mg/dL (74-106); MAGNESIUM - SERUM 2.2 mg/dL (1.8-2.4); PHOSPHOROUS 3.8 mg/dL (2.5-4.9); PROTEIN - SERUM 5.7 g/dL (6.4-8.2); SODIUM 141 mmol/L (136-145); UREA NITROGEN 12 mg/dL (7-18)
[2018-02-04 04:21] LABS: CREATININE - SERUM 0.6 mg/dL (0.6-1.3); eGFR NON AFRICAN AMERICAN > 90 mL/min (90-120)
[2018-02-04] MEDS ORDERED: LOVENOX30 MG/0.3 SC (13:12)
[2018-02-04] MEDS ORDERED: IPRAT-ALBUT 0.5-3 ML IH (13:12)
[2018-02-04] MEDS ORDERED: NORVASC2.5 MG PO (13:13)
[2018-02-04] MEDS ORDERED: QUESTRAN PACK4 G/PKT PEG (13:13)
[2018-02-04] MEDS ORDERED: CALMOSEPTINE OI71 GM TOPICAL (13:14)
[2018-02-04] MEDS ORDERED: SOLU-CORTE100 MG/22 IV (13:14)
[2018-02-04] MEDS ORDERED: E.E.S. 200200 MG/5 M PT ×2 (13:14→16:17)
[2018-02-05 10:23] LABS: FUNGUS CULTURE RESULT 1 Candida albicans (())
[2018-02-18 08:08] LABS: FUNGUS MYCOLOGY CULTURE Final report (())
[2018-03-14 15:25] LABS: ACID FAST CULTURE Negative (()); ACID FAST SMEAR Negative (())
== END 2018-02-04 16:57 | disposition short-term general hospital (02) | DRG 3 ==
LOC: D.ER 17:52 → D.ICU 22:58 → D.MS 22:58 → D.EDHOLD 22:58 → D.MS 23:37 → D.ICU 01-13 07:27
PROVIDERS: Family Medicine; Internal Medicine Pulmonary Disease; Student in an Organized Health Care Education/Training Program; Surgery
PROC: 0BH17EZ Insertion of Endotracheal Airway into Trachea, Via Natural or Artificial Opening (ICD-10-PCS; principal; 2018-01-13)
PROC: 5A1955Z Respiratory Ventilation, Greater than 96 Consecutive Hours (ICD-10-PCS; 2018-01-13)
PROC: 05H633Z Insertion of Infusion Device into Left Subclavian Vein, Percutaneous Approach (ICD-10-PCS; 2018-01-13)
PROC: 0B9F8ZZ Drainage of Right Lower Lung Lobe, Via Natural or Artificial Opening Endoscopic (ICD-10-PCS; 2018-01-19)
PROC: 0B9J8ZZ Drainage of Left Lower Lung Lobe, Via Natural or Artificial Opening Endoscopic (ICD-10-PCS; 2018-01-19)
PROC: 0B998ZZ Drainage of Lingula Bronchus, Via Natural or Artificial Opening Endoscopic (ICD-10-PCS; 2018-01-19)
PROC: 0B948ZZ Drainage of Right Upper Lobe Bronchus, Via Natural or Artificial Opening Endoscopic (ICD-10-PCS; 2018-01-19)
PROC: 0B988ZZ Drainage of Left Upper Lobe Bronchus, Via Natural or Artificial Opening Endoscopic (ICD-10-PCS; 2018-01-19)
PROC: 0B958ZZ Drainage of Right Middle Lobe Bronchus, Via Natural or Artificial Opening Endoscopic (ICD-10-PCS; 2018-01-19)
PROC: 0DH63UZ Insertion of Feeding Device into Stomach, Percutaneous Approach (ICD-10-PCS; 2018-01-25)
PROC: 0B113F4 Bypass Trachea to Cutaneous with Tracheostomy Device, Percutaneous Approach (ICD-10-PCS; 2018-01-25 11:00)
DX: A41.59 Other Gram-negative sepsis (principal); R53.2 Functional quadriplegia; J96.01 Acute respiratory failure with hypoxia; R65.21 Severe sepsis with septic shock; J18.9 Pneumonia, unspecified organism; J96.02 Acute respiratory failure with hypercapnia; N39.0 Urinary tract infection, site not specified; I50.30 Unspecified diastolic (congestive) heart failure; E87.0 Hyperosmolality and hypernatremia; E16.2 Hypoglycemia, unspecified; N18.9 Chronic kidney disease, unspecified; N20.0 Calculus of kidney; T17.920A Food in respiratory tract, part unspecified causing asphyxiation, initial encounter; E87.6 Hypokalemia; E83.39 Other disorders of phosphorus metabolism; Z89.511 Acquired absence of right leg below knee

== ENCOUNTER 2018-07-07 13:56 | Inpatient (IN) | payer MEDICARE ==
[~2018-07-07] VITALS: Ht 185.4 cm; Wt 49.5 kg
[2018-07-07] VITALS (9 sets, daily range): BP systolic 81–199; BP diastolic 50–103
[~2018-07-07 13:56] MED LIST changes: +BACLOFEN20 M1 PEG; -BACLOFEN20 M1 PO; +CALMOSEPTINE OI71 GM TOPICAL; +E.E.S. 200200 MG/5 M PT; +FLOMAX0.4 MG PEG; -FLOMAX0.4 MG PO; -HYDROCODONE-APA1 TAB PO; +IPRAT-ALBUT 0.5-3 ML IH; +LOVENOX30 MG/0.3 SC; +NORCO 10-325 TA1 TAB PEG; +NORVASC2.5 MG PO; +OMEPRAZOLE20 M1 PO; +QUESTRAN PACK4 G/PKT PEG; +SOLU-CORTE100 MG/22 IV; +SOMA250 MG PEG; -SOMA250 MG PO
--- NOTE | 2018-07-07 14:15 | NUR ---
PT IS A RESIDENT AT THE [facility]. HE STATES THAT THEY DID LAB WORK AND THE WBC WAS ELEVATED. HE DENIES ANY C/O AT THIS TIME. ABD SOFT, BS PRESENT IN ALL QUADS. G-TUBE IN PLACE, DRSG INTACK WITH YELLOW FLUID NOTED ON DRSG.
[2018-07-07 14:46] LABS: HEMATOCRIT 32.3 % (42.0-54.0); HEMOGLOBIN 9.8 g/dL (13.5-17.5); MCH 21.5 pg (26.0-34.0); MCHC 30.3 g/dL (31.0-37.0); PLATELET COUNT 791 10x3/uL (130-400); RBC 4.55 10x6/uL (4.20-6.10); RDW 15.8 % (11.5-14.5); WBC 23.4 10x3/uL (4.8-10.8)
--- NOTE | 2018-07-07 15:00 | NUR ---
PHONE CALL FROM PT DAUGHTER JASON WILLIS [phone]. RECEIVED HISTORY REPORT FROM ANDREA AND REPORT GIVEN TO ERP.
[2018-07-07 15:06] LABS: ALBUMIN 1.9 g/dL (3.4-5.0); ALKALINE PHOSPHATASE 167 U/L (46-116); ALT (SGPT) 16 U/L (10-68); BILIRUBIN - TOTAL 0.34 mg/dL (0.2-1.3); CALC OSMOLALITY 267 mosm/kg (275-300); CARBON DIOXIDE 24.1 mmol/L (21.0-32.0); CHLORIDE - SERUM 98 mmol/L (98-107); CREATININE - SERUM 0.5 mg/dL (0.6-1.3); GLUCOSE 112 mg/dL (74-106); POTASSIUM - SERUM 4.6 mmol/L (3.5-5.1); PROTEIN - SERUM 6.5 g/dL (6.4-8.2); SODIUM 134 mmol/L (136-145); UREA NITROGEN 11 mg/dL (7-18); eGFR NON AFRICAN AMERICAN > 90 mL/min (90-120)
[2018-07-07 15:14] LABS: EOSINOPHILS 1 % (0-7); LYMPHOCYTES 13 % (15-50); MONOCYTES 1 % (2-11); NEUTROPHILS 85 % (40-80); PLATELET ESTIMATE INCREASED; ROULEAUX 1+; TARGET CELLS OCC; TEAR DROP CELLS OCC
--- NOTE | 2018-07-07 16:00 | NUR ---
URINE DRAWN FROM THE CATH PORT AND SENT TO THE LAB.
[2018-07-07 16:32] LABS: APPEARANCE CLEAR (CLEAR); BILIRUBIN NEGATIVE (NEGATIVE); COLOR YELLOW (YELLOW); GLUCOSE NEGATIVE (NEGATIVE); KETONE MODERATE mg/dL (NEGATIVE); NITRITE POSITIVE (NEGATIVE); PROTEIN 1+ mg/dL (NEGATIVE); SPECIFIC GRAVITY 1.015 (1.005-1.020); UROBILINOGEN NORMAL (NORMAL)
[2018-07-07 16:33] LABS: BACTERIA MODERATE /hpf (NONE SEEN); CALCIUM OXALATE CRYSTALS 0-5 /hpf (NONE SEEN); EPITHELIAL CELLS 0-5 /hpf (0-5); RED CELLS - URINE 0-5 /hpf (0-5); YEAST >1+ /hpf (NONE SEEN)
--- NOTE | 2018-07-07 17:45 | NUR ---
STOOL FOR OCCULT BLOOD SAMPLE - NEG. WOUND DRSG TO SACRAL AREA INTACT. WOUND DRSG TO THE LEFT LEG AND FOOT INTACT, HEEL PROTECTOR IN PLACE TO LLE.
--- NOTE | 2018-07-07 19:34 | NUR ---
REBECCA STOP TIME 193.
--- NOTE | 2018-07-07 22:11 | NUR ---
REC'D PATIENT FROM THE ER. NO S/S OF DISTRESS. PATIENT HAD STOOL ON HIM UPON ARRIVAL. TWO OTHER NURSES AND I CLEANED THE PATIENT UP AND REDRESSED HIS PRESSURE WOUNDS. DRESSING AROUND PATIENT'S PEG WAS ALSO SOILED. CLEANED SITE AND CHANGED DRESSING. COMPLETED PATIENT'S ASSESSMENT AND HISTORY. PATIENT DENIES OTHER NEEDS AT THIS TIME. BED IN LOWEST POSITION AND CALL LIGHT WITHIN REACH. ENCOURAGED THE PATIENT TO CALL IF HE HAS NEEDS. WILL CONTINUE TO MONITOR.
[2018-07-08] VITALS (7 sets, daily range): BP systolic 96–119; BP diastolic 45–68; BMI 14.8; BMI 14.7
[2018-07-08] MEDS ORDERED: ACETAMINOP160 MG/5 M PEG ×2 (01:39→01:59)
[2018-07-08] MEDS ORDERED: FLORANEX / LACT1 TAB PEG ×2 (01:40→02:01)
[2018-07-08] MEDS ORDERED: POTASSIUM20 MEQ/15 PEG (01:52)
[2018-07-08] MEDS ORDERED: PROMOD LIQUID P30 M1 PEG (01:53)
[2018-07-08] MEDS ORDERED: PROSCAR5 MG PEG (01:54)
[2018-07-08] MEDS ORDERED: PROTONIX FOR OR40 MG PEG (01:54)
[2018-07-08] MEDS ORDERED: SENNA LAXATIVE8.6 MG PEG (01:55)
[2018-07-08] MEDS ORDERED: XANAX0.25 MG PEG (01:57)
[2018-07-08] MEDS ORDERED: ZOFRAN4 MG PEG (01:58)
[2018-07-08] MEDS ORDERED: NORVASC2.5 MG PEG (02:01)
[2018-07-08] MEDS ORDERED: ASCORBIC ACID500 MG PEG (02:02)
[2018-07-08] MEDS ORDERED: CARAFATE1 G/10 ML PEG (02:03)
[2018-07-08] MEDS ORDERED: BACLOFEN10 MG PEG (02:03)
[2018-07-08] MEDS ORDERED: SOMA350 MG PEG (02:04)
[2018-07-08] MEDS ORDERED: QUESTRAN LIG1 PACKET PEG (02:06)
[2018-07-08] MEDS ORDERED: IPRAT-ALBUT 0.5-3 ML UPD ×2 (02:09→02:10)
[2018-07-08] MEDS ORDERED: DIFLUCAN SUS40 MG/ML PEG (02:11)
[2018-07-08] MEDS ORDERED: NORCO 10-325 TA1 TAB PEG ×2 (02:12→02:17)
[2018-07-08] MEDS ORDERED: GUAIFENESI100 MG/5 M PEG (02:12)
[2018-07-08] MEDS ORDERED: MIRALAX17 GM PEG ×2 (02:14)
[2018-07-08] MEDS ORDERED: REMERON15 MG PEG (02:15)
[2018-07-08] MEDS ORDERED: POLY-VI-SOL W/I50 ML PEG (02:16)
[2018-07-08] MEDS ORDERED: OXYBUTYNIN5 MG/BLIST PEG (02:19)
[2018-07-08 06:56] LABS: BASOPHILS 0.3 % (0-2); EOSINOPHILS 1.5 % (0-7); HEMATOCRIT 30.3 % (42.0-54.0); HEMOGLOBIN 8.8 g/dL (13.5-17.5); IMMATURE GRANULOCYTES 0.5 % (0-5); LYMPHOCYTES 12.9 % (15-50); MCH 21.1 pg (26.0-34.0); MCV 72.7 fL (80.0-100.0); MEAN PLATELET VOLUME 9.5 fL (7.4-10.4); MONOCYTES 5.2 % (2-11); NEUTROPHILS 79.6 % (40-80); PLATELET COUNT 742 10x3/uL (130-400); RBC 4.17 10x6/uL (4.20-6.10); RDW 15.8 % (11.5-14.5); WBC 21.5 10x3/uL (4.8-10.8)
[2018-07-08 07:05] LABS: CALCIUM 8.9 mg/dL (8.5-10.1); CARBON DIOXIDE 21.2 mmol/L (21.0-32.0); CHLORIDE - SERUM 102 mmol/L (98-107); POTASSIUM - SERUM 4.4 mmol/L (3.5-5.1); SODIUM 138 mmol/L (136-145)
[2018-07-08 07:24] LABS: CALC OSMOLALITY 276 mosm/kg (275-300); CREATININE - SERUM 0.8 mg/dL (0.6-1.3); UREA NITROGEN 21 mg/dL (7-18); eGFR NON AFRICAN AMERICAN > 90 mL/min (90-120)
[2018-07-08 07:32] LABS: GLUCOSE 60 mg/dL (74-106)
--- NOTE | 2018-07-08 07:45 | NUR ---
PT LAYING IN BED ALERT BUT CUNFEUSED. PT COMPLAINS OF PAIN IN BUTTOCK AREA. PT HAS 3 STAGE FOUR PRESSURE ULCERS. PAIN MEDICATION PRN. READJUSTED PT IN BED. WOUND CARE WAS CONSULTED. BED LOW CALL LIGHT WITHIN REACH. WILL CONTINUE TO MONITOR.
--- NOTE | 2018-07-08 08:00 | NUR ---
PT ALERT AND ORIENTED X2. PT STATES ANTS ARE CRAWLING ON HIS LEGS. PT ON 2L OF 02- 95% PT HAS THREE STAGE FOUR PRESSURE ULCERS TO THE BUTTOCKS AND COCCX AREA. VICKEY WOUND CARE NURSE HAS BEEN CONSULTED. PT QUADRAPALEGIC WITH MINIMAUL USE OF ARMS. PT BED LOW CALL LIGHT WITHIN REACH. WILL CONTINUE TO MONITOR
--- NOTE | 2018-07-08 11:58 | NUR ---
Wound care consult: Pt has numerous skin issues listed as follows: Sacrum: 7cm x 7cm x 1.3cm x 1.5cm from 6-12 oclock Stage 4 pressure injury Right buttock: 6cm x 8cm x 0.6cm x 1.3cm from 11-12 oclock stage 4 pressure injury Left buttock: 6cm x 8cm x 0.7cm x 1.7cm from 12-2 oclock stage 4 pressure injury RBKA: Scabbed area below knee Left lateral heel: unstageable pressure injury Left medial heel: nonblanchable stage 1 pressure injury Left medial ankle: scabbed area Recommended wet to dry dressings for sacrum, right and left buttocks and left lateral heel. wtd with NS. Other wounds on left foot/ankle/leg were covered with adaptic/4x4s and wrapped with kerlix to secure. Pt is incontinent of bowel and bladder. F/C is in place. Has feeding tube. Emaciated appearance. He is being turned and repositioned every 2 hours. The left foot is in a pressure relieving boot. Wound care will continue monitoring.
--- NOTE | 2018-07-08 11:59 | MORECARE ---
CASE MANAGEMENT DISCHARGE SUMMARY PATIENT: JERAMY DUBOIS UNIT: [id number] ADM DATE: 07/07/18 AGE: 68 : 52 SEX: M ROOM/BED: D.1209 AUTHOR: BRANDAN SANCHEZ PHYSICIAN: REFERRING PHYSICIAN: DANIELLA MADERA MD DATE OF SERVICE: 07/08/18 Discharge Plan Patient Name: JERAMY DUBOIS [facility] 1950 Planned Disposition: Nursing Home Facility Anticipated Discharge Date: Discharge Date: Expected LOS: Initial Reviewer: [email or web address] Initial Review Date: 07/07/2018 Generated: 07/08/18 12:59 pm Comments DCP- Discharge Planning Updated by [email or web address]: Marline Lucio on 07/08/18 10:[address] PATIENT ADMITTED FROM THE [facility]. TELEPHONE CALL TO THE [facility]. CM SPOKE WITH RAMON. SHE STATES THE PATIENT IS IN A MEDICARE A BED. SHE EXPECTS HE WILL RETURN UNLESS HIS DAUGHTER, JASON, DECIDES DIFFERENTLY. THE [facility] [phone]. WILL SPEAK WITH THE PATIENT'S DAUGHTER TO CONFIRM THE PLAN. Patient Name: JERAMY DUBOIS Page [phone] at 1159 All edits/amendments must be made on the electronic document DICTATION DATE: 07/08/18 1158 MANAGER TAX: FRANK 07/08/18 1158 RPT#: [id number] DC DATE: STATUS: ADM IN [facility] [address] [place] [address] END OF REPORT
--- NOTE | 2018-07-08 18:10 | NUR ---
PT 20G IV INFILTRATED. IV DC'D CATHETER TIP IN PLACE. INSERTED 22G IV INRIGHT WRIST. IV PATNENT AND SALINE LOCKED. BED LOW CALL LIGHT WITHIN REACH. WILL CONTINUE TO MONITOR.
--- NOTE | 2018-07-08 19:35 | NUR ---
PT RESTING IN BED. EYES OPEN WITH SOME CONFUSION AND HALLUCINATIONS. NO SIGNS OF DISTRESS. BREATHING EVEN AND UNLABORED. 2LO2 NASAL CANNULA. LUNG SOUNDS CRACKLES. IV SITE RT WRIST DRESSING CLEAN DRY AND INTACT. NO SIGNS OF INFECTION. RT LT ARM WEAKNESS. PEG TUBE IN PLACE LT LOWER ABD. GREEN DRAINAGE AROUND SITE. GUTIERREZ IN PLACE AND DRAINING NO SIGNS OF INFECTION AT INSERTION SITE NO REDDNESS PRESENT. RT BKA. SCABS AND SORES RT LEG. LT HEEL WOUND DRESSING CLEAN DRY AND INTACT. LT FOOT BRIDGED WITH PILLOWS. LT AND RT BUTTOCKS WOUNDS STAGE 4 DRESSINGS WET TO DRY. DRESSINGS CLEAN DRY AND ITNACT. WILL CONTINUE PLAN OF CARE. CALL LIGHT IN REACH.
[2018-07-09 00:33] VITALS: BP 117/59
[2018-07-09 04:54] VITALS: BP 106/54
--- NOTE | 2018-07-09 05:04 | NUR ---
RESTING QUIETLY WITH EYES CLOSED. NO ACUTE DISTRESS. CL IN REACH. SR ELEVATED X2.
[2018-07-09 06:50] LABS: BASOPHILS 0.2 % (0-2); EOSINOPHILS 0.4 % (0-7); HEMOGLOBIN 8.4 g/dL (13.5-17.5); IMMATURE GRANULOCYTES 0.5 % (0-5); LYMPHOCYTES 16.3 % (15-50); MCH 20.9 pg (26.0-34.0); MCV 72.1 fL (80.0-100.0); MEAN PLATELET VOLUME 8.9 fL (7.4-10.4); MONOCYTES 6.5 % (2-11); NEUTROPHILS 76.1 % (40-80); PLATELET COUNT 804 10x3/uL (130-400); RBC 4.02 10x6/uL (4.20-6.10); WBC 20.5 10x3/uL (4.8-10.8)
[2018-07-09 07:07] LABS: ALBUMIN 1.7 g/dL (3.4-5.0); ALKALINE PHOSPHATASE 140 U/L (46-116); ALT (SGPT) 12 U/L (10-68); BILIRUBIN - TOTAL 0.38 mg/dL (0.2-1.3); CARBON DIOXIDE 16.2 mmol/L (21.0-32.0); CHLORIDE - SERUM 106 mmol/L (98-107); CREATININE - SERUM 0.7 mg/dL (0.6-1.3); PROTEIN - SERUM 6.5 g/dL (6.4-8.2); SODIUM 144 mmol/L (136-145); UREA NITROGEN 18 mg/dL (7-18); eGFR NON AFRICAN AMERICAN > 90 mL/min (90-120)
[2018-07-09 07:10] LABS: CALC OSMOLALITY 286 mosm/kg (275-300); GLUCOSE 64 mg/dL (74-106); POTASSIUM - SERUM 3.7 mmol/L (3.5-5.1)
--- NOTE | 2018-07-09 07:35 | NUR ---
ASSESSMENT COMPLETE. NONPRODUCTIVE COUGH. GUTIERREZ PATENT DRAINING YELLOW URINE. JIRA ADMINISTRATOR SHOWING SR WITH PVC'S 82 PER TECH. O2 2L NC IN USE. DRESSINGS TO BUTTOCKS INTACT. DRESSING INTACT TO LEFT HEEL. RIGHT RESIDUAL LIMB WITH SCABS AND SORES. IV TO R FA PATENT. DENIES ANY NEEDS AT THIS TIME.
[2018-07-09 08:35] VITALS: BP 109/62
--- NOTE | 2018-07-09 12:00 | NUR ---
NO CHANGES NOTED AT THIS TIME.
--- NOTE | 2018-07-09 13:45 | NUR ---
DR DAS BY TO SEE PATIENT AND ASSESS BUTTOCK WOUNDS.
--- NOTE | 2018-07-09 13:56 | NUR ---
DEMEROL 25 MG GIVEN SLOW IVP BEFORE STARTING DRESSING CHANGES.
--- NOTE | 2018-07-09 14:00 | NUR ---
PATIENT INCONT OF LIQUID BOWEL MOVEMENT. PATIENT CLEANED. DRESSINGS TO BUTTOCKS X 3 CHANGED PER ORDERS. DRESSING TO LEFT LEG CHANGED PER ORDER. WANTING BOOT LEFT OFF FOR A WHILE. RECTAL TUBE INSERTED WITHOUT DIFFICULTY. AIR OVERLAY MATTRESS APPLIED TO BED. REPOSITIONED TO LEFT SIDE.
--- NOTE | 2018-07-09 15:30 | NUR ---
DR HOLLAND BY SEE PATIENT. PATIENT NOT WANTING SURGERY AT THIS TIME.
--- NOTE | 2018-07-09 17:00 | NUR ---
REQUESTING TO BE TURNED. REFUSING TO BE TURNED TO A SIDE. TUBE FEEDING OF JEVITY 1.5 NYLA STARTED AT 20 CC/HR VIA PEG TUBE.
[2018-07-09 17:56] VITALS: BP 104/45
[2018-07-09 18:11] VITALS: Ht 185.4 cm; Wt 49.5 kg
--- NOTE | 2018-07-09 19:20 | NUR ---
RESUME CARE. PT LAYINGIN IN BED ON AIR OVERLAY MATTRESS , D5W RUNNING @75 , TUBE FEEDING JEVITY @20 , RECTAL TUBE IN PLACE , GUTIERREZ IN PLACE. PT A&O NO C/O PAIN OR DISTRESS AT THIS TIME CALL LIGHT IN REACH WILL CONT TO NIKOLAS
[2018-07-09 20:00] VITALS: BP 104/53
--- NOTE | 2018-07-09 21:38 | NUR ---
NORCO AND XANAX GIVEN VIA PEG TOLERATED WELL
--- NOTE | 2018-07-09 23:10 | NUR ---
PT TURNED TO LFT SIDE
[2018-07-10 00:02] VITALS: BP 111/38
--- NOTE | 2018-07-10 01:39 | NUR ---
PT ASLEEP, RESP EVEN AND UNLABORED. BEDLOW AND CALL LIGHT IN REACH. NO S/S OF DISTRESS. WILL CPOC
[2018-07-10 04:00] VITALS: BP 108/57
[2018-07-10 07:15] LABS: ALBUMIN 1.4 g/dL (3.4-5.0); ALKALINE PHOSPHATASE 115 U/L (46-116); ALT (SGPT) 11 U/L (10-68); BILIRUBIN - TOTAL 0.22 mg/dL (0.2-1.3); CALCIUM 7.8 mg/dL (8.5-10.1); CHLORIDE - SERUM 102 mmol/L (98-107); PROTEIN - SERUM 5.4 g/dL (6.4-8.2); SODIUM 136 mmol/L (136-145)
[2018-07-10 07:25] LABS: CALC OSMOLALITY 270 mosm/kg (275-300); CARBON DIOXIDE 23.2 mmol/L (21.0-32.0); CREATININE - SERUM 0.5 mg/dL (0.6-1.3); GLUCOSE 107 mg/dL (74-106); UREA NITROGEN 9 mg/dL (7-18); eGFR NON AFRICAN AMERICAN > 90 mL/min (90-120)
[2018-07-10 07:29] LABS: BASOPHILS 0.3 % (0-2); EOSINOPHILS 2.2 % (0-7); HEMATOCRIT 27.5 % (42.0-54.0); HEMOGLOBIN 8.1 g/dL (13.5-17.5); IMMATURE GRANULOCYTES 0.3 % (0-5); LYMPHOCYTES 21.4 % (15-50); MCH 21.1 pg (26.0-34.0); MCHC 29.5 g/dL (31.0-37.0); MCV 71.6 fL (80.0-100.0); MEAN PLATELET VOLUME 8.6 fL (7.4-10.4); MONOCYTES 8.1 % (2-11); NEUTROPHILS 67.7 % (40-80); RBC 3.84 10x6/uL (4.20-6.10); RDW 15.9 % (11.5-14.5)
[2018-07-10 07:31] LABS: PLATELET COUNT 632 10x3/uL (130-400); WBC 10.8 10x3/uL (4.8-10.8)
--- NOTE | 2018-07-10 07:55 | NUR ---
PT RESTING IN BED C/O PAIN. PT REPOSITIONED. PT STATES THIS DOES NOT HELP BUT DOES NOT WANT TO BE MOVED AGAIN. WCTM.
--- NOTE | 2018-07-10 09:15 | NUR ---
PT AM MEDS ADMINISTERED ALONG WITH PRN NORCO. PT RESIDUAL 0 MLS BEFORE ADMINISTRATION. PT TF INCREASED TO 30ML/HR AT THIS TIME. WCTM.
[2018-07-10 10:38] VITALS: BP 142/51
--- NOTE | 2018-07-10 10:38 | NUR ---
Jevity 1.5 was starting and being advanced as tolerated. Tube feeding is now running at 30mL/hour Water flushes of 30mL/hour Spoke with nursing and nursing reports tolerating TF and head of bed is at [address] following
--- NOTE | 2018-07-10 11:45 | NUR ---
PT REFUSES TO LEAVE HIS BED AT 45 DEGREES. THIS NURSE EXPLAINED TO HIM IMPORTANCE TO KEEP HIM FROM ASPIRATING. WCTM.
--- NOTE | 2018-07-10 19:25 | NUR ---
PT HAS CONTINUOUSLY BEEN PRECISION GRINDER LIGHT TODAY. PT WAS TURNED OFTEN AND C/O 9/10 PAIN AT ALL TIMES. PT RESIDUAL AT 1730 WAS OVER 60ML. PEG TUBE WAS NOT TURNED UP 10MLS AT THIS TIME. [facility].
--- NOTE | 2018-07-10 19:30 | NUR ---
THE PATIENT WAS WATCHING TELEVISION WHEN STAFF ENTERED HIS ROOM. CALL LIGHT, HOUSE PHONE, AND PERSONAL PHONE WITHIN REACH. BED IN THE LOW POSITION WITH SIDERAILS UP X2. PATIENT WAS PREMEDICATED FOR WOUND CARE.
[2018-07-10 20:03] VITALS: BP 86/50
[2018-07-11] VITALS: BP 109/53
--- NOTE | 2018-07-11 00:03 | NUR ---
NORCO GIVEN VIA PEG TOLERATED WELL
--- NOTE | 2018-07-11 01:30 | NUR ---
IV LOOSE AND MOVED TO RIGHT FOREARM. THE PATIENT HAS NO COMCERNS AT THIS TIME. CALL LIGHT, HOUSE PHONE, AND PERSONAL PHONE WITHIN REACH.
[2018-07-11 04:58] VITALS: BP 115/55
[2018-07-11 07:05] LABS: BASOPHILS 0.2 % (0-2); HEMATOCRIT 29.2 % (42.0-54.0); HEMOGLOBIN 8.6 g/dL (13.5-17.5); IMMATURE GRANULOCYTES 0.2 % (0-5); LYMPHOCYTES 18.3 % (15-50); MCH 20.9 pg (26.0-34.0); MCHC 29.5 g/dL (31.0-37.0); MCV 70.9 fL (80.0-100.0); MEAN PLATELET VOLUME 9.2 fL (7.4-10.4); MONOCYTES 7.7 % (2-11); NEUTROPHILS 72.6 % (40-80); PLATELET COUNT 728 10x3/uL (130-400); RBC 4.12 10x6/uL (4.20-6.10); RDW 15.9 % (11.5-14.5); WBC 12.8 10x3/uL (4.8-10.8)
[2018-07-11 07:17] LABS: ALBUMIN 1.5 g/dL (3.4-5.0); ALKALINE PHOSPHATASE 172 U/L (46-116); BILIRUBIN - TOTAL 0.23 mg/dL (0.2-1.3); CALC OSMOLALITY 272 mosm/kg (275-300); CALCIUM 7.8 mg/dL (8.5-10.1); CHLORIDE - SERUM 100 mmol/L (98-107); CREATININE - SERUM 0.5 mg/dL (0.6-1.3); GLUCOSE 112 mg/dL (74-106); PROTEIN - SERUM 5.3 g/dL (6.4-8.2); SODIUM 137 mmol/L (136-145); UREA NITROGEN 7 mg/dL (7-18); eGFR NON AFRICAN AMERICAN > 90 mL/min (90-120)
[2018-07-11 07:19] LABS: ALT (SGPT) 20 U/L (10-68); POTASSIUM - SERUM 3.7 mmol/L (3.5-5.1)
--- NOTE | 2018-07-11 08:40 | NUR ---
TF INCREASED BY 10MLS TO 40ML/HR AT THIS TIME.
--- NOTE | 2018-07-11 08:56 | NUR ---
PT AM MEDS ADMINISTERED THROUGH PEG TUBE. PT PRN NORCO GIVEN REQUESTED AT THIS TIME.
[2018-07-11 10:52] VITALS: BP 99/42
[2018-07-11 11:34] VITALS: BP 93/99
--- NOTE | 2018-07-11 13:48 | NUR ---
Nutrition Follow Up: Pt stated that he is tolerating current TF regimen. Spoke with nursing regarding Keanu to promote wound healing. BM: 07/09/18 I>O Labs reviewed Meds noted including Vit C Noted pt with stage IV wound to L Buttock - Rec continue current TF regimen of Jevity 1.5 with goal rate of 45 ml/hr and H2O flushes 30 ml/hr to provide 1620 kcal, 68 g protein and 810 ml free H2O. - Will order Keanu 1 pkt BID via PEG. Flush with 60 ml H2O before and after administered. - HOB >/= to 45 degrees per Pulmonology. - Rec MV, Zinc supplement daily. RD following.
--- NOTE | 2018-07-11 15:07 | CN ---
PATIENT NAME:JERAMY MOHAMUD MEDICAL RECORD: [id number] : 54 LOCATION:D.M3 D.1209 ADMIT DATE: 07/07/18 ACCOUNT: [id number] CONSULTING PHYSICIAN: ERIC SALAMANCA MD REFERRING PHYSICIAN: MARCI MARADIAGA MD DATE OF CONSULTATION: 07/08/2018 CONSULT REQUESTING PHYSICIAN: Dr. Maradiaga. REASON FOR CONSULTATION: Recurrent pneumonia. HISTORY OF PRESENT ILLNESS: Mr. Mohamud is a 68-year-old gentleman with a history of functional quadriplegia. The patient is with a PEG tube in and he has recurrent pneumonia. The patient was recently hospitalized to [facility] and was discharged on 05 of July. The patient was brought in over here with confusion and weakness and found out the patient has significant leukocytosis. The CT scan of the abdomen showed there is infiltrate in lower lobe. Now, the patient is more awake and alert. REVIEW OF SYSTEMS: The patient is mainly bedbound. PAST MEDICAL HISTORY: 1. Functional quadriplegia. 2. Chronic backache. 3. Recurrent pneumonia. 4. Dysphagia. 5. Anxiety, depression. PAST SURGICAL HISTORY: 1. He has a halo and plate placement in the neck 9 years ago. 2. Status post PEG tube placement. 3. History of tracheostomy. ALLERGIES: ALLERGIC TO LORAZEPAM AND MORPHINE. MEDICATIONS: WAKU WAKU ? is reviewed. PERSONAL AND SOCIAL HISTORY: The patient is mainly bedbound. He is an ex-smoker. He is a nondrinker. FAMILY HISTORY: Significant for hypertension. PHYSICAL EXAMINATION: GENERAL: Now, the patient is more awake and alert. He is lying comfortably in bed. VITAL SIGNS: The blood pressure is 119/68, pulse is 75, respiration is 16, temperature is 97.9 and SpO2 is 95% on 2 liters nasal cannula. HEENT: Conjunctivae are pink. Sclerae is not icteric. NECK: Supple, no JVD. CHEST: The chest excursion is minimal on both sides. There is bibasilar crackles. No wheezing. HEART: Rhythm regular, normal sound, no murmur. ABDOMEN: Soft, bowel sounds present. No hepatosplenomegaly. SKIN: He has a pressure sore. CENTRAL NERVOUS SYSTEM: The patient is awake and alert. He has a functional CONSULT REPORT [id number] JERAMY MOHAMUD quadriplegia. IMAGING: CT scan of the abdomen, lower part, there is infiltrate in the lower lobe. There is a questionable nodules. There are bilateral decubitus ulcers. LABORATORY DATA: CBC: The WBC is 23.4, hemoglobin is 9.8, hematocrit 32.3, the platelet count is 191. Chemistry: Sodium 138, potassium is 4.4, BUN is 21, creatinine is 0.8. IMPRESSION: 1. Recurrent aspiration pneumonia. 2. Leukocytosis. 3. Urinary tract infection. 4. Decubitus ulcer. 5. Functional quadriplegia. RECOMMENDATION: 1. Continue vancomycin and Merrem. 2. We will recommend to get surgery consult. 3. Wound care. 4. Aspiration precaution. 5. Keep the head end of the bed by 45-degree. Follow up labs and chest radiograph. Dr. Maradiaga, thank you for involving me in the care of Mr. Mohamud. TRANSINT:[id number] Voice Confirmation ID: [id number] DOCUMENT ID: [id number] ERIC SALAMANCA MD at 1507 CC: [id number] DICTATION DATE: 07/08/18 1637 MINERAL RESOURCES INSPECTOR: 07/08/18 1704 ADM IN [facility] [address] [place] [id number]
[2018-07-11 16:47] VITALS: BP 94/47
--- NOTE | 2018-07-11 18:49 | NUR ---
PT TF INCREASED TO 45 ML AT THIS TIME.
--- NOTE | 2018-07-11 19:15 | NUR ---
RESUME CARE. PT IN BED ON OVERLAY MATTRESS A&O PEG IN PLACE JEVITY 1.5 @45, PT C/O OF PAIN AND NOT FEELING GOOD, ADVISED PT I WOULD GIVE HIM SOMETHING FOR PAIN NO OTHER COMPLAINTS AT THIS TIME CALL LIGHT IN REACH WILL CONT TO NIKOLAS
[2018-07-11 20:00] VITALS: BP 134/68
--- NOTE | 2018-07-11 20:03 | NUR ---
NORCO GIVEN VIA PEG TOLERATED WELL
--- NOTE | 2018-07-11 21:15 | NUR ---
CHANGED DRESSINGS ON BOTTOM , CHANGED DRG ON FEEDING TUBE APPLIED DRY 4X4, DRGING SOAKED AND DRGING AND GOWN, PT GIVEN BED BATH NO OTHER C/O AT THIS TIME CALL LIGHT IN REACH WILL CONT TO MONITOR
[2018-07-12] VITALS: BP 101/53
--- NOTE | 2018-07-12 03:26 | NUR ---
XANAX GIVEN VIA PEG TOLERATED WELL
[2018-07-12 04:00] VITALS: BP 108/49
--- NOTE | 2018-07-12 04:14 | NUR ---
NORCO GIVEN VIA PEG TOLERATED WELL
[2018-07-12 05:45] LABS: BASOPHILS 0.3 % (0-2); EOSINOPHILS 2.7 % (0-7); HEMATOCRIT 29.6 % (42.0-54.0); HEMOGLOBIN 8.8 g/dL (13.5-17.5); IMMATURE GRANULOCYTES 0.4 % (0-5); LYMPHOCYTES 18.8 % (15-50); MCH 21.3 pg (26.0-34.0); MCHC 29.7 g/dL (31.0-37.0); MCV 71.5 fL (80.0-100.0); MEAN PLATELET VOLUME 9.2 fL (7.4-10.4); MONOCYTES 7.8 % (2-11); PLATELET COUNT 681 10x3/uL (130-400); RBC 4.14 10x6/uL (4.20-6.10); RDW 16.2 % (11.5-14.5); WBC 11.9 10x3/uL (4.8-10.8)
[2018-07-12 05:48] LABS: ALBUMIN 1.4 g/dL (3.4-5.0); ALKALINE PHOSPHATASE 158 U/L (46-116); ALT (SGPT) 17 U/L (10-68); CALC OSMOLALITY 278 mosm/kg (275-300); CALCIUM 8.2 mg/dL (8.5-10.1); CARBON DIOXIDE 29.8 mmol/L (21.0-32.0); CHLORIDE - SERUM 101 mmol/L (98-107); CREATININE - SERUM 0.5 mg/dL (0.6-1.3); GLUCOSE 156 mg/dL (74-106); PROTEIN - SERUM 5.7 g/dL (6.4-8.2); SODIUM 139 mmol/L (136-145); UREA NITROGEN 7 mg/dL (7-18); eGFR NON AFRICAN AMERICAN > 90 mL/min (90-120)
[2018-07-12 05:52] LABS: POTASSIUM - SERUM 3.1 mmol/L (3.5-5.1)
--- NOTE | 2018-07-12 08:49 | NUR ---
PT REPOSITIONED IN BED. PT DENIES FURTHER NEEDS. WCTM.
[2018-07-12 09:20] VITALS: BP 96/54
[2018-07-12 14:41] VITALS: BP 121/54
[2018-07-12 16:12] VITALS: BP 92/68
--- NOTE | 2018-07-12 19:46 | NUR ---
RECEIVED REPORT. SITTING UP IN BED ON RIGHT SIDE HOB ELEVATED ALERT AND ORIENTED X4. DENIES ANY NEEDS, C/O ACHING THROBBING PAIN ALL OVER REQUESTED PAIN MEDICATION WILL ADMINISTER PER ORDER. CALL LIGHT WITHIN REACH, FALL PRECAUTIONS IN PLACE. GUTIERREZ PATENT FREE OF KINKS, RECTAL TUBE PATENT AND INTACT
[2018-07-12 20:00] VITALS: BP 149/65
--- NOTE | 2018-07-12 22:00 | NUR ---
CHANGED OUT KANGAROO BAG
--- NOTE | 2018-07-12 22:25 | NUR ---
REFUSED DRESSING CHANGE TO LLE, HEEL AND BUTTOCKS. ONLY ALLOWED FOR DRESSING CHANGE TO PEG SITE.
--- NOTE | 2018-07-12 23:39 | NUR ---
LYING IN BED HOB 45 DEGREES EYES CLOSED RESTING. RR EVEN AND UNLABORED. CALL LIGHT WITHIN REACH, FALL PRECAUTIONS IN PLACE
[2018-07-13] VITALS: BP 115/56
--- NOTE | 2018-07-13 00:15 | NUR ---
LYING IN BED WITH EYES CLOSED. RESP EVEN AND NONLABORED. HOB ELEVATED. SR ELEVATED X2. CL IN REACH.
--- NOTE | 2018-07-13 01:43 | NUR ---
LYING IN BED SUPINE HOB 45 DEGREES EYES OPEN AND ALERT. DENIES ANY NEEDS C/O MILD DISCOMFORT. RR EVEN AND UNLABORED CONTINUES ON 2L VIA NC. CALL LIGHT WITHIN REACH, FALL PRECAUTIONS IN PLACE
[2018-07-13 04:00] VITALS: BP 122/61
--- NOTE | 2018-07-13 05:13 | NUR ---
SITTING UP IN BED EYES CLOSED RESTING. RR EVEN AND UNLABORED. CALL LIGHT WITHIN REACH, FALL PRECAUTIONS IN PLACE
--- NOTE | 2018-07-13 07:35 | NUR ---
ASSESSMENT COMPLETE. IV TO R FA PATENT. [employer] VICE PRINCIPAL SHOWING SR WITH PVC'S 95 PER TECH. PEG TUBE PATENT-JEVITY INFUSING AT 45 CC/HR VIA PUMP. RECTAL TUBE IN USE. O2 2L NC IN USE. 1ST STEP AIR OVERLAY IN USE. GUTIERREZ PATENT DRAINING YELLOW URINE. DRESSINGS TO BUTTOCKS AND LEFT LEG INTACT.
[2018-07-13 07:44] LABS: BASOPHILS 0.2 % (0-2); EOSINOPHILS 2.3 % (0-7); HEMOGLOBIN 9.5 g/dL (13.5-17.5); IMMATURE GRANULOCYTES 0.7 % (0-5); MCH 21.4 pg (26.0-34.0); MCHC 29.7 g/dL (31.0-37.0); MCV 72.2 fL (80.0-100.0); MEAN PLATELET VOLUME 9.4 fL (7.4-10.4); MONOCYTES 7.2 % (2-11); NEUTROPHILS 65.6 % (40-80); PLATELET COUNT 781 10x3/uL (130-400); RBC 4.43 10x6/uL (4.20-6.10); RDW 16.3 % (11.5-14.5)
[2018-07-13 07:54] LABS: WBC 18.1 10x3/uL (4.8-10.8)
[2018-07-13 08:14] LABS: ALBUMIN 1.5 g/dL (3.4-5.0); ALKALINE PHOSPHATASE 173 U/L (46-116); ALT (SGPT) 20 U/L (10-68); BILIRUBIN - TOTAL 0.22 mg/dL (0.2-1.3); CALC OSMOLALITY 272 mosm/kg (275-300); CALCIUM 8.4 mg/dL (8.5-10.1); CARBON DIOXIDE 28.8 mmol/L (21.0-32.0); CHLORIDE - SERUM 100 mmol/L (98-107); CREATININE - SERUM 0.4 mg/dL (0.6-1.3); GLUCOSE 112 mg/dL (74-106); POTASSIUM - SERUM 4.1 mmol/L (3.5-5.1); PROTEIN - SERUM 6.1 g/dL (6.4-8.2); SODIUM 137 mmol/L (136-145); UREA NITROGEN 8 mg/dL (7-18); eGFR NON AFRICAN AMERICAN > 90 mL/min (90-120)
[2018-07-13 11:33] VITALS: BP 132/69
--- NOTE | 2018-07-13 13:15 | NUR ---
ALFREDO GIVEN FOR COMPLAINT OF GENERALIZED PAIN. OFFER TO REPOSITION. REFUSED AT THIS TIME. STATES HE WILL LET ME KNOW WHEN HE'S READY.
--- NOTE | 2018-07-13 16:15 | NUR ---
ATTEMPTED TO REPOSITION TO LEFT SIDE. PATIENT STARTED YELLING TO STOP SOON WE ATTEMPTED TO TURN. LEGS REPOSITIONED PER PATIENT REQUEST. DENIES ANY FURTHER NEEDS AT THIS TIME.
[2018-07-13 16:41] VITALS: BP 91/55
[2018-07-13 19:40] VITALS: BP 145/62
--- NOTE | 2018-07-13 19:46 | NUR ---
RECIEVED UP IN BED WITH EYES OPEN. ALERT AND ORIENTED X4. BOTH HAND CONTRACTED. ABBLE TO USE SOME FINGER TIPS. TELEMETRY IN PLACE AND O2@ 2 LITERS PER N/C. 1ST STEP OVERLAY ON BED. RECTAL TUBE IN PLACE. F/C INTACT WITH CLESR YELLOW URINE TO BEDSIDE DRAINAGE SYSTEM. 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 WILL CONT. POC.
--- NOTE | 2018-07-13 19:46 | NUR ---
RECIEVED UP IN BED WITH EYES OPEN AND TV ON. ALERT AND ORIENTED X4. PEG TUBE CHECKED FOR PATENCY WITH 1OCC AIR. 0 ASPIRATED. JEVITY 1.5 INFUSING AT 45CC/HR WITH 60CC FLUSH. IV TO RIGHT FA INFUSING D5W AT 30CC/HR. 1ST STEP OVERLAY ON BED. RECTAL TUBE IN PLACE. F/C INTACT WITH CLEAR YELLOW URINE DRAINING TO BEDSIDE DRAINAGE BAG. LEFT LEG DSG [id number]. RIGHT LEG BKA WITH SCABS. SAID HE DIDNT WANT THE ROBITUSSIN. OFF GOING REPORTEED HE REFUSES ROBITUSSIN. WILL CONT. POC.
--- NOTE | 2018-07-13 22:00 | NUR ---
CONT TO REFUSE ROBITUSSIN AND DSG CHANGE TO BUTTOCKS. SAID HE WILL LET ME KNOW LATER IF HE WANTS IT CHANGE. PAIN MED GIVEN AND EFFECTIVE. WILL CONT. POC.
--- NOTE | 2018-07-13 22:49 | NUR ---
ALOWWED THIS NURSE TO CHANGE DSG TO COCCYX AND LEFT BUTTOCKS. STATED HE COULNT TAKE ANY MORE. WOUND BEDS ARE RED AND BEEFEY COLORED. SMALL DIME SIZE ESCARE AREA ABOVE ANUS OPENING.
[2018-07-13 23:55] VITALS: BP 113/53
[2018-07-14 03:45] VITALS: BP 147/60
[2018-07-14 08:00] VITALS: BP 96/57
--- NOTE | 2018-07-14 08:58 | NUR ---
RESTING QUIETLY IN BED. HOB UP 40 DEGREES. JEVITY INFUSING AT 45 CC/HR VIA PUMP. 1 STEP AIR OVERLAY IN USE.
--- NOTE | 2018-07-14 11:29 | NUR ---
REC'D IN BED AWAKE AND ALERT. RESP EVEN AND UNLABORED WITN NO DISTRESS NOTED. CAN EXPRESS NEEDS AND WANTS. NO C/O N OTED OR VOICED. ASSESSMENT COMPLETED. C/L IN REACH AT BEDSIDE.
--- NOTE | 2018-07-14 13:00 | NUR ---
REFUSED TO LET THIS NURSE CHANGE DRESSING.
--- NOTE | 2018-07-14 13:29 | NUR ---
WAS MEDICATED WITH NORCO 10 FOR C/O GENERALIZED PAIN RATING 9/10 ON PAIN SCALE. C/L IN REACH AT BEDSIDE
[2018-07-14 16:00] VITALS: BP 100/54
[2018-07-14 16:36] VITALS: BP 110/55
--- NOTE | 2018-07-14 19:15 | NUR ---
RECEIVED CARE FROM DAY NURSE. LYING IN BED IN HIGH FOWLERS POSITION. IV INFSUING TO RIGHT FA. LEFT LEG ELEVATED ON PILLOW. GUTIERREZ TO GRAVITY. RECTAL TUBE IN PLACE. REPORTS NO NEEDS AT THIS TIME. CALL LIGHT AT SIDE. JD WITHIN REACH.
--- NOTE | 2018-07-14 19:30 | NUR ---
PATIENT RESTING IN BED WITH NO S/S OF DISTRESS. LUIS ANN AT BEDSIDE. WILL CONTINUE TO MONITOR.
[2018-07-14 20:00] VITALS: BP 113/57
[2018-07-15] VITALS: BP 122/65
[2018-07-15 04:00] VITALS: BP 120/57
[2018-07-15 07:03] LABS: BASOPHILS 0.4 % (0-2); HEMATOCRIT 30.8 % (42.0-54.0); IMMATURE GRANULOCYTES 0.6 % (0-5); LYMPHOCYTES 35.9 % (15-50); MCH 20.9 pg (26.0-34.0); MCHC 29.2 g/dL (31.0-37.0); MCV 71.5 fL (80.0-100.0); MEAN PLATELET VOLUME 9.5 fL (7.4-10.4); MONOCYTES 10.7 % (2-11); NEUTROPHILS 50.4 % (40-80); PLATELET COUNT 667 10x3/uL (130-400); RBC 4.31 10x6/uL (4.20-6.10); RDW 16.2 % (11.5-14.5); WBC 16.3 10x3/uL (4.8-10.8)
--- NOTE | 2018-07-15 07:16 | NUR ---
REC'D IN BED WITH EYES CLOSED EASILY TO AROUSED WHEN NAME IS CALLED. RESP EVEN AND UNLABORED WITH NO DISTRESS NOTED. CAN EXPRESS NEEDS AND WANTS. NO C/O NOTED OR VOICED. ASSESSMENT COMPLETED. C/L IN REACH AT BEDSIDE.
[2018-07-15 07:19] LABS: CALC OSMOLALITY 276 mosm/kg (275-300); CALCIUM 8.2 mg/dL (8.5-10.1); CARBON DIOXIDE 27.2 mmol/L (21.0-32.0); CHLORIDE - SERUM 102 mmol/L (98-107); CREATININE - SERUM 0.5 mg/dL (0.6-1.3); GLUCOSE 128 mg/dL (74-106); POTASSIUM - SERUM 3.6 mmol/L (3.5-5.1); SODIUM 138 mmol/L (136-145); eGFR NON AFRICAN AMERICAN > 90 mL/min (90-120)
[2018-07-15 07:21] LABS: UREA NITROGEN 11 mg/dL (7-18)
--- NOTE | 2018-07-15 09:38 | MORECARE ---
CASE MANAGEMENT DISCHARGE SUMMARY PATIENT: JERAMY DUBOIS UNIT: [id number] ADM DATE: 07/07/18 AGE: 68 : 52 SEX: M ROOM/BED: D.1209 AUTHOR: BRANDAN SANCHEZ PHYSICIAN: REFERRING PHYSICIAN: MARCI MARADIAGA MD DATE OF SERVICE: 07/15/18 Discharge Plan Patient Name: JERAMY DUBOIS Facility: [facility]:[place] : 1950 Planned Disposition: Fdc Facility Anticipated Discharge Date: Discharge Date: Expected LOS: Initial Reviewer: [email or web address] Initial Review Date: 07/07/2018 Generated: 07/15/18 10:38 am Comments DCP- Discharge Planning Updated by [id number]: Lawanda Thorpe on 07/15/18 8:[address] CM notified by nurse that patient wants to transfer to [facility]. States he never wanted to come to [facility]. CM called [employer]ter [employer]per for administrative approval. Spoke with Nara. Admin approval obtained. Called Dr. Maradiaga and informed him of request to transfer. MD is agreeable and plans to follow patient at receiving hospital. CM called [facility] bed control. Spoke with Merissa about request for lateral transfer. Awaiting determination. Informed patient on status of transfer and that patient would be financially responsible for ambulance transport to [facility] d/t lateral transfer. Patient verbalized understanding and satisfaction with discharge plan. Awaiting acceptance. CM will continue to follow and assist as needed with discharge planning / needs. DCP- Discharge Planning Updated by [email or web address]: Marline Lucio on 07/08/18 10:[address] PATIENT ADMITTED FROM [facility]. TELEPHONE CALL TO [facility]. KENNETH SPOKE WITH RAMON. SHE STATES THE PATIENT IS IN A MEDICARE A BED. SHE EXPECTS HE WILL RETURN UNLESS HIS DAUGHTER, JASON, DECIDES DIFFERENTLY. [facility] [phone]. WILL SPEAK WITH THE PATIENT'S DAUGHTER TO CONFIRM THE PLAN. Last DP export: 07/08/18 10:59 Patient Name: JERAMY DUBOIS Page [phone] at 0938 All edits/amendments must be made on the electronic document DICTATION DATE: 07/15/18936 PICKER/PULLER: FRANK 07/15/18936 RPT#: [id number] DC DATE: STATUS: ADM IN [facility] [address] [place] [address] END OF REPORT
--- NOTE | 2018-07-15 09:48 | NUR ---
X7 DAYS OF VANCOMYCIN THERAPY COMPLETE PLEASE REORDER IF EXTENDED DURATION IS NEEDED THANK YOU FOR THE CONSULT!
--- NOTE | 2018-07-15 12:43 | NUR ---
SITTING UP IN BED EATING LUNCH. DENIES NEEDS.
--- NOTE | 2018-07-15 13:53 | NUR ---
WAS MEDICATED FOR C/O PAIN RATING 8/10 ON PAIN SCALE WITH NORCO PER ORDERS. C/L IN REACH AT BEDSIDE.
--- NOTE | 2018-07-15 14:08 | MORECARE ---
CASE MANAGEMENT DISCHARGE SUMMARY PATIENT: JERAMY DUBOIS UNIT: [id number] ADM DATE: 07/07/18 AGE: 68 : 52 SEX: M ROOM/BED: D.1209 AUTHOR: BRANDAN SANCHEZ PHYSICIAN: REFERRING PHYSICIAN: MARCI MARADIAGA MD DATE OF SERVICE: 07/15/18 Discharge Plan Patient Name: JERAMY DUBOIS Facility: [facility]:[place] : 1950 Planned Disposition: Halfway Facility Anticipated Discharge Date: Discharge Date: Expected LOS: Initial Reviewer: [id number] Initial Review Date: 07/07/2018 Generated: 07/15/18 3:08 pm Comments DCP- Discharge Planning Updated by [email or web address]: Lawanda Thorpe on 07/15/18 8:[address] CM notified by nurse that patient wants to transfer to [facility]. States he never wanted to come to [facility]. CM called [employer] for administrative approval. Spoke with Nara. Admin approval obtained. Called Dr. Maradiaga and informed him of request to transfer. MD is agreeable and plans to follow patient at receiving hospital. CM called [facility] bed control. Spoke with Merissa about request for lateral transfer. Awaiting determination. Informed patient on status of transfer and that patient would be financially responsible for ambulance transport to [facility] d/t lateral transfer. Patient verbalized understanding and satisfaction with discharge plan. Awaiting acceptance. CM will continue to follow and assist as needed with discharge planning / needs. DCP- Discharge Planning Updated by [email or web address]: Marline Lucio on 07/08/18 10:[address] PATIENT ADMITTED FROM [facility]. TELEPHONE CALL TO [facility]. KENNETH SPOKE WITH RAMON. SHE STATES THE PATIENT IS IN A MEDICARE A BED. SHE EXPECTS HE WILL RETURN UNLESS HIS DAUGHTER, JASON, DECIDES DIFFERENTLY. [facility] [phone]. WILL SPEAK WITH THE PATIENT'S DAUGHTER TO CONFIRM THE PLAN. Last DP export: 07/15/18 8:38 Patient Name: JERAMY DUBOIS Page [id number] at 1408 All edits/amendments must be made on the electronic document DICTATION DATE: 07/15/181406 BANANA EXPERT: FRANK 07/15/181406 RPT#: [id number] NC DATE: STATUS: ADM IN [facility] [address] [place] [address] END OF REPORT
--- NOTE | 2018-07-15 16:00 | NUR ---
PT REFUSE FOR THIS NURSE TO CHANGES DRESSING STATING THAT THEY ARE CHANGED AT NIGHT.
[2018-07-15 16:06] VITALS: BP 101/52
[2018-07-15 16:20] VITALS: BP 105/55
--- NOTE | 2018-07-15 19:08 | NUR ---
RECIEVED UP BED WITH EYES OPEN . ALERT AND ORIENTED X 1. VERY CONFUSED THIS SHIFT AND NOT MAKING MUCH SENSE. C/O LEG CRAMPS. WILL CHECK MEDS TO SEE WHAT HE CAN HAVE. DENIES ANY OTHER NEEDS.WILL CONT. POC.
[2018-07-15 20:00] VITALS: BP 113/56
--- NOTE | 2018-07-15 21:43 | NUR ---
REFUSES ANEUDY BAILEY AT THIS TIME. WILL ATTEMPT LATER.
[2018-07-16] VITALS: BP 110/49
[2018-07-16 04:00] VITALS: BP 112/56
[2018-07-16 07:07] LABS: BASOPHILS 0.4 % (0-2); EOSINOPHILS 2.4 % (0-7); HEMATOCRIT 30.6 % (42.0-54.0); IMMATURE GRANULOCYTES 0.5 % (0-5); LYMPHOCYTES 18.8 % (15-50); MCH 21.1 pg (26.0-34.0); MCHC 29.4 g/dL (31.0-37.0); MCV 71.8 fL (80.0-100.0); MEAN PLATELET VOLUME 9.5 fL (7.4-10.4); MONOCYTES 9.8 % (2-11); NEUTROPHILS 68.1 % (40-80); PLATELET COUNT 660 10x3/uL (130-400); RBC 4.26 10x6/uL (4.20-6.10); RDW 16.3 % (11.5-14.5); WBC 13.5 10x3/uL (4.8-10.8)
[2018-07-16 07:36] LABS: CALC OSMOLALITY 275 mosm/kg (275-300); CALCIUM 8.5 mg/dL (8.5-10.1); CARBON DIOXIDE 27.9 mmol/L (21.0-32.0); CHLORIDE - SERUM 99 mmol/L (98-107); CREATININE - SERUM 0.4 mg/dL (0.6-1.3); GLUCOSE 108 mg/dL (74-106); SODIUM 137 mmol/L (136-145); eGFR NON AFRICAN AMERICAN > 90 mL/min (90-120)
[2018-07-16 07:39] LABS: UREA NITROGEN 14 mg/dL (7-18)
--- NOTE | 2018-07-16 07:50 | NUR ---
ASSESSMENT COMPLETE. SL TO R FA PATENT. O2 3L NC IN USE. PEG TUBE PATENT. JEVITY INFUSING AT 45 CC/HR VIA PUMP. GUTIERREZ PATENT DRAINING YELLOW URINE. RECTAL TUBE IN USE. DRESSINGS INTACT TO BUTTOCKS AND LEFT LEG. DENIES ANY NEEDS AT THIS TIME.
[2018-07-16 08:28] VITALS: BP 109/57
--- NOTE | 2018-07-16 09:00 | NUR ---
30 CC'S RESIDUAL FROM PEG TUBE.
--- NOTE | 2018-07-16 12:24 | MORECARE ---
CASE MANAGEMENT DISCHARGE SUMMARY PATIENT: JERAMY DUBOIS UNIT: [id number] ADM DATE: 07/07/18 AGE: 68 : 52 SEX: M ROOM/BED: D.1209 AUTHOR: LAURA,DOC PHYSICIAN: REFERRING PHYSICIAN: MARCI MARADIAGA MD DATE OF SERVICE: 07/16/18 Discharge Plan Patient Name: JERAMY DUBOIS Facility: [facility]:[place] : 1950 Planned Disposition: Snf Facility Anticipated Discharge Date: Discharge Date: Expected LOS: Initial Reviewer: [email or web address] Initial Review Date: 07/07/2018 Generated: 07/16/18 1:24 pm Comments DCP- Discharge Planning Updated by [email or web address]: Marline Lucio on 07/16/18 11:[address] LATE ENTRY 1056 WHILE REVIEWING CM NOTES SAW PATIENT FOR POSSIBLE TRANSFER TO [facility] [place]. TC TO [facility]. SPOKE WITH NAIDA IN BED CONTROL/ ADULT SCHOOL COUNSELOR. SHE HAS NO MED/ SURG BEDS AVAILABLE AND THEY ARE ON ER DIVERSION. [facility] CANNOT ACCEPT TODAY. ADVISED SREEKANTH, CHARGE NURSE. TO RE-EVAL IN THE AM. DCP- Discharge Planning Updated by [id number]: Lawanda Thorpe on 07/15/18 8:[address] CM notified by nurse that patient wants to transfer to [facility]. States he never wanted to come to [facility]. CM called Mixing Machine Attendant for administrative approval. Spoke with Nara. Admin approval obtained. Called Dr. Maradiaga and informed him of request to transfer. MD is agreeable and plans to follow patient at receiving hospital. CM called [facility] bed control. Spoke with Naida about request for lateral transfer. Awaiting determination. Informed patient on status of transfer and that patient would be financially responsible for ambulance transport to [facility] d/t lateral transfer. Patient verbalized understanding and satisfaction with discharge plan. Awaiting acceptance. CM will continue to follow and assist as needed with discharge planning / needs. DCP- Discharge Planning Updated by [email or web address]: Marline Lucio on 07/08/18 10:[address] PATIENT ADMITTED FROM [facility]. TELEPHONE CALL TO [facility]. CM SPOKE WITH RAMON. SHE STATES THE PATIENT IS IN A MEDICARE A BED. SHE EXPECTS HE WILL RETURN UNLESS HIS DAUGHTER, JASON, DECIDES DIFFERENTLY. [facility] [phone]. WILL SPEAK WITH THE PATIENT'S DAUGHTER TO CONFIRM THE PLAN. Last DP export: 07/15/18 1:08 Patient Name: JERAMY DUBOIS Page [phone] at 1224 All edits/amendments must be made on the electronic document DICTATION DATE: 07/16/18 1223 TRAFFIC WORKER: FRANK 07/16/18 1223 RPT#: [id number] DC DATE: STATUS: ADM IN [facility] [address] [place] [address] END OF REPORT
--- NOTE | 2018-07-16 14:10 | NUR ---
DRESSING CHANGED AROUND PEG TUBE. LINENS CHANGED. PATIENT REPOSITIONED. COMPLAINING OF PAIN. NORCO GIVEN. DR STOVER BY TO SEE PATIENT.
[2018-07-16 14:30] VITALS: BP 110/49
[2018-07-16 16:03] VITALS: BP 108/61
--- NOTE | 2018-07-16 17:58 | NUR ---
COMPLAINING OF EAR PAIN.
[2018-07-16 20:00] VITALS: BP 134/63
--- NOTE | 2018-07-16 20:05 | NUR ---
PT RESTING IN BED. AAO X3, PT COMPLAINING OF SEVERE LEG PAIN. NORCO GIVEN WELL SCHEDULED BACLOFEN. PT COMPLAINING OF ANXIETY, XANAX GIVEN. PT STATES HE WANTS TO GET CLEANED UP TONIGHT. STATES HE WILL CALL ONCE HIS PAIN MEDS KICK IN. PT HAS NO S/S OF DISTRESS. BEDLOW AND CALL LIGHT IN REACH. WILL CPOC
--- NOTE | 2018-07-16 20:08 | NUR ---
NAME AND DATE PLACED ON BOARD. PT RESTING IN BED. NO S/S OF DISTRESS. PT HAS CALL LIGHT IN REACH. DENIES ANY NEEDS. WILL CPOC
[2018-07-17] VITALS: BP 115/67
--- NOTE | 2018-07-17 00:36 | NUR ---
PT ASLEEP. RESP EVEN AND UNLABORED. 3L O2 NC. NO S/S OF DISTRESS. WILL CPOC
--- NOTE | 2018-07-17 03:36 | NUR ---
PT BACLOFEN GIVEN AND RETIMED. NORCO GIVEN FOR 10/10 PAIN. PT TUBE FEEDING TUBING CHANGED. SIGNED AND DATED. PT COMPLAINS OF EAR AND THROAT PAIN. OBSERVED LARGE AMOUNTS OF EAR WAX AND A UNIDENTIFIED SUB IN RIGHT EAR, LEFT EAR HAD LARGE AMOUNTS OF EAR WAX. PT THROAT RED WITH SPUTUM IN BACK OF THROAT. PT HAS NO S/S OF DISTRESS. BEDLOW AND CALL LIGHT IN REACH. WILL CPOC
[2018-07-17 04:00] VITALS: BP 133/67
--- NOTE | 2018-07-17 05:54 | NUR ---
PT COUGHING THAN EMESIS OF GREEN LIQUID. STOPPED PUMP AND LOOKED FOR A NAUSEA MED. PT HAS NO NAUSEA MED ORDERED. CALLING [facility].
--- NOTE | 2018-07-17 05:58 | NUR ---
SPOKE WITH DR STOVER AND OBTAINED AN ORDER FOR ZOFRAN 4MG IV Q4H PRN. ORDER PLACED AND GIVEN TO PT.
--- NOTE | 2018-07-17 06:06 | NUR ---
CHECKED RESIDUAL. IT IS 40CC. PT RESTING IN BED. WILL CHANGE CLOTHES AND LINEN ONCE PALLAVIFRAN KICKS IN. PT RESTING IN BED. VERBALIZED UNDERSTANDING TO CALL IF TUBE FEEDING INCREASES NAUSEA. PT BEDLOW AND CALL LIGHT IN REACH. WILL CPOC
[2018-07-17 06:22] LABS: BASOPHILS 0.4 % (0-2); EOSINOPHILS 1.7 % (0-7); HEMATOCRIT 32.6 % (42.0-54.0); HEMOGLOBIN 9.6 g/dL (13.5-17.5); IMMATURE GRANULOCYTES 0.7 % (0-5); LYMPHOCYTES 15.1 % (15-50); MCH 21.2 pg (26.0-34.0); MCHC 29.4 g/dL (31.0-37.0); MEAN PLATELET VOLUME 9.7 fL (7.4-10.4); MONOCYTES 9.3 % (2-11); NEUTROPHILS 72.8 % (40-80); PLATELET COUNT 717 10x3/uL (130-400); RBC 4.53 10x6/uL (4.20-6.10); RDW 16.1 % (11.5-14.5); WBC 16.9 10x3/uL (4.8-10.8)
[2018-07-17 06:39] LABS: CALCIUM 9.2 mg/dL (8.5-10.1); CARBON DIOXIDE 29.2 mmol/L (21.0-32.0); CHLORIDE - SERUM 102 mmol/L (98-107); GLUCOSE 125 mg/dL (74-106); POTASSIUM - SERUM 4.5 mmol/L (3.5-5.1); SODIUM 140 mmol/L (136-145)
[2018-07-17 06:43] LABS: CALC OSMOLALITY 283 mosm/kg (275-300); CREATININE - SERUM 0.6 mg/dL (0.6-1.3); UREA NITROGEN 24 mg/dL (7-18); eGFR NON AFRICAN AMERICAN > 90 mL/min (90-120)
--- NOTE | 2018-07-17 06:47 | NUR ---
PT GIVEN A BED BATH. CHANGED SOILED DRSGS. PT STATES NAUSEA BETTER. WILL CPOC
[2018-07-17 07:45] VITALS: BP 115/63
--- NOTE | 2018-07-17 11:12 | NUR ---
PT RESTING IN BED. NO SIGNS OF DISTRESS. IV TO RIGHT FORARM PATENT NO REDNESS OR TENDERNESS. HAS GUTIERREZ PATENT NO KINKS. HAS RECTAL TUBE IN PLACE PATENT NO KINKS. HAS STAGE FOUR WOUNDS TO BUTTOCKS AND SACRUM. DRESSING INTACT. HAS DRESSING INTACT TO LEFT HEEL. HAS PEG TUBE. PATENT. ON 1ST STEP OVERLAY BED. DENIES ANY NEED AT THIS TIME. CALL LIGHT IN REACH. BED LOW POSITION. NO FAMILY AT BEDSIDE.
--- NOTE | 2018-07-17 11:18 | NUR ---
PROVIDED PT WITH MOUTH SWABS, PT DENIES ANY OTHER NEEDS AT THIS TIME. CALL LIGHT IN REACH, NAD NOTED.
[2018-07-17 11:28] VITALS: BP 146/68
--- NOTE | 2018-07-17 11:33 | MORECARE ---
CASE MANAGEMENT DISCHARGE SUMMARY PATIENT: JERAMY DUBOIS UNIT: [id number] ADM DATE: 07/07/18 AGE: 68 : 52 SEX: M ROOM/BED: D.1209 AUTHOR: LAURA,DOC PHYSICIAN: REFERRING PHYSICIAN: MARCI MARADIAGA MD DATE OF SERVICE: 07/17/18 Discharge Plan Patient Name: JERAMY DUBOIS Facility: [facility]:[place] : 1950 Planned Disposition: Group Home Facility Anticipated Discharge Date: Discharge Date: Expected LOS: Initial Reviewer: [email or web address] Initial Review Date: 07/07/2018 Generated: 07/17/18 12:33 pm Comments DCP- Discharge Planning Updated by [email or web address]: Lawanda Thorpe on 07/17/18 10:[address] CM called [facility] bed control to check status of bed for transfer. Spoke with Danika who infomred that she had beds available and will call Dr. Maradiaga to make sure he is still willing to accept patient. CM notified citlali's nurse on status of transfer. CM will continue to follow and assist as needed with discharge planning / needs. DCP- Discharge Planning Updated by [id number]: Marline Lucio on 07/16/18 11:[address] LATE ENTRY 1056 WHILE REVIEWING CM NOTES SAW PATIENT FOR POSSIBLE TRANSFER TO [facility] [place]. TC TO [facility]. SPOKE WITH MERISSA IN BED CONTROL/ RETAINING ROOM CUTTER. SHE HAS NO MED/ SURG BEDS AVAILABLE AND THEY ARE ON ER DIVERSION. [facility] CANNOT ACCEPT TODAY. ADVISED SREEKANTH, CHARGE NURSE. TO RE-EVAL IN THE AM. DCP- Discharge Planning Updated by [email or web address]: Lawanda Thorpe on 07/15/18 8:[address] CM notified by nurse that patient wants to transfer to [facility]. States he never wanted to come to [facility]. CM called [employer] for administrative approval. Spoke with Nara. Admin approval obtained. Called Dr. Maradiaga and informed him of request to transfer. MD is agreeable and plans to follow patient at receiving hospital. CM called [facility] bed control. Spoke with Merissa about request for lateral transfer. Awaiting determination. Informed patient on status of transfer and that patient would be financially responsible for ambulance transport to [facility] d/t lateral transfer. Patient verbalized understanding and satisfaction with discharge plan. Awaiting acceptance. CM will continue to follow and assist as needed with discharge planning / needs. DCP- Discharge Planning Updated by [email or web address]: Marline Lucio on 07/08/18 10:[address] PATIENT ADMITTED FROM [facility]. TELEPHONE CALL TO THE [facility]. CM SPOKE WITH RAMON. SHE STATES THE PATIENT IS IN A MEDICARE A BED. SHE EXPECTS HE WILL RETURN UNLESS HIS DAUGHTER, JASON, DECIDES DIFFERENTLY. [facility] [phone]. WILL SPEAK WITH THE PATIENT'S DAUGHTER TO CONFIRM THE PLAN. Last DP export: 07/16/18 11:24 am Patient Name: JERAMY DUBOIS Page [id number] at 1133 All edits/amendments must be made on the electronic document DICTATION DATE: 07/17/18 113 BUSINESS PLANNER: FRANK 07/17/18 1132 RPT#: [id number] DC DATE: STATUS: ADM IN [facility] [address] [place] [address] END OF REPORT
--- NOTE | 2018-07-17 13:20 | MORECARE ---
CASE MANAGEMENT DISCHARGE SUMMARY PATIENT: JERAMY DUBOIS UNIT: [id number] ADM DATE: 07/07/18 AGE: 68 : 52 SEX: M ROOM/BED: D.1209 AUTHOR: LAURA,DOC PHYSICIAN: REFERRING PHYSICIAN: MARCI MARADIAGA MD DATE OF SERVICE: 07/17/18 Discharge Plan Patient Name: JERAMY DUBOIS Facility: [facility]:[place] : 1950 Planned Disposition: Long Term Facility Anticipated Discharge Date: Discharge Date: Expected LOS: Initial Reviewer: [email or web address] Initial Review Date: 07/07/2018 Generated: 07/17/18 2:20 pm Comments DCP- Discharge Planning Updated by [email or web address]: Lawanda Thorpe on 07/17/18 10:[address] CM called [facility] bed control to check status of bed for transfer. Spoke with Danika who infomred that she had beds available and will call Dr. Maradiaga to make sure he is still willing to accept patient. CM notified citlali's nurse on status of transfer. CM will continue to follow and assist as needed with discharge planning / needs. DCP- Discharge Planning Updated by [email or web address]: Marline Lucio on 07/16/18 11:[address] LATE ENTRY 1056 WHILE REVIEWING CM NOTES SAW PATIENT FOR POSSIBLE TRANSFER TO [facility] [place]. TC TO [facility]. SPOKE WITH MERISSA IN BED CONTROL/ HOGSHEAD BUILDER. SHE HAS NO MED/ SURG BEDS AVAILABLE AND THEY ARE ON ER DIVERSION. [facility] CANNOT ACCEPT TODAY. ADVISED SREEKANTH, CHARGE NURSE. TO RE-EVAL IN THE AM. DCP- Discharge Planning Updated by [email or web address]: Lawnada Thorpe on 07/15/18 8:[address] CM notified by nurse that patient wants to transfer to [facility]. States he never wanted to come to [facility]. CM called Centrifugal Chiller Technician for administrative approval. Spoke with Nara. Admin approval obtained. Called Dr. Maradiaga and informed him of request to transfer. MD is agreeable and plans to follow patient at receiving hospital. CM called [facility] bed control. Spoke with Merissa about request for lateral transfer. Awaiting determination. Informed patient on status of transfer and that patient would be financially responsible for ambulance transport to [facility] d/t lateral transfer. Patient verbalized understanding and satisfaction with discharge plan. Awaiting acceptance. CM will continue to follow and assist as needed with discharge planning / needs. DCP- Discharge Planning Updated by [id number]: Marline Lucio on 07/08/18 10:[address] PATIENT ADMITTED FROM THE [facility]. TELEPHONE CALL TO THE [facility]. CM SPOKE WITH RAMON. SHE STATES THE PATIENT IS IN A MEDICARE A BED. SHE EXPECTS HE WILL RETURN UNLESS HIS DAUGHTER, JASON, DECIDES DIFFERENTLY. [facility] [phone]. WILL SPEAK WITH THE PATIENT'S DAUGHTER TO CONFIRM THE PLAN. External Providers External Provider: OTHER-OTHER Next Contact Date: Service Request Date: Service Type: Resolution: Reviewer: Comments: Last DP export: 07/17/18 10:33 am Patient Name: JERAMY DUBOIS Page [phone] at 1320 All edits/amendments must be made on the electronic document DICTATION DATE: 07/17/18 1319 WEB APPLICATION TESTER: FRANK 07/17/18 1319 RPT#: [id number] DC DATE: STATUS: ADM IN [facility] [address] [place] [address] END OF REPORT
--- NOTE | 2018-07-17 14:48 | MORECARE ---
CASE MANAGEMENT DISCHARGE SUMMARY PATIENT: JERAMY DUBOIS UNIT: [id number] ADM DATE: 07/07/18 AGE: 68 : 54 SEX: M ROOM/BED: D.1209 AUTHOR: LAURA,DOC PHYSICIAN: REFERRING PHYSICIAN: MARCI MARADIAGA MD DATE OF SERVICE: 07/17/18 Discharge Plan Patient Name: JERAMY DUBOIS Facility: [facility]:[place] : 1950 Planned Disposition: Detention Facility Anticipated Discharge Date: Discharge Date: Expected LOS: Initial Reviewer: [email or web address] Initial Review Date: 07/07/2018 Generated: 07/17/18 3:48 pm Comments DCP- Discharge Planning Updated by [email or web address]: Lawanda Thorpe on 07/17/18 1:[address] CM received call from Clare with [facility]. Patient has been accepted to room 428. Nurse to call report to [phone]. CM informed patient's nurse. DCP- Discharge Planning Updated by [id number]: Lawanda Thorpe on 07/17/18 10:[address] CM called [facility] bed control to check status of bed for transfer. Spoke with Danika who infomred that she had beds available and will call Dr. Maradiaga to make sure he is still willing to accept patient. CM notified citlali's nurse on status of transfer. CM will continue to follow and assist as needed with discharge planning / needs. DCP- Discharge Planning Updated by [email or web address]: Marline Lucio on 07/16/18 11:[address] LATE ENTRY 1056 WHILE REVIEWING CM NOTES SAW PATIENT FOR POSSIBLE TRANSFER TO [facility] [place]. TC TO [facility]. SPOKE WITH MERISSA IN BED CONTROL/ ICT ACCOUNT MANAGER. SHE HAS NO MED/ SURG BEDS AVAILABLE AND THEY ARE ON ER DIVERSION. [facility] CANNOT ACCEPT TODAY. ADVISED SREEKANTH, CHARGE NURSE. TO RE-EVAL IN THE AM. DCP- Discharge Planning Updated by [email or web address]: Lawanda Thorpe on 07/15/18 8:[address] CM notified by nurse that patient wants to transfer to [facility]. States he never wanted to come to [facility]. CM called [employer] for administrative approval. Spoke with Nara. Admin approval obtained. Called Dr. Maradiaga and informed him of request to transfer. is agreeable and plans to follow patient at receiving hospital. CM called [facility] bed control. Spoke with Merissa about request for lateral transfer. Awaiting determination. Informed patient on status of transfer and that patient would be financially responsible for ambulance transport to [facility] d/t lateral transfer. Patient verbalized understanding and satisfaction with discharge plan. Awaiting acceptance. CM will continue to follow and assist as needed with discharge planning / needs. DCP- Discharge Planning Updated by [email or web address]: Marline Lucio on 07/08/18 10:[address] PATIENT ADMITTED FROM THE [facility]. TELEPHONE CALL TO THE [facility] NURSING AND REH[facility]. KENNETH SPOKE WITH RAMON. SHE STATES THE PATIENT IS IN A MEDICARE A BED. SHE EXPECTS HE WILL RETURN UNLESS HIS DAUGHTER, JASON, DECIDES DIFFERENTLY. THE [facility] [phone]. WILL SPEAK WITH THE PATIENT'S DAUGHTER TO CONFIRM THE PLAN. Last DP export: 07/17/18 12:20 pm Patient Name: JERAMY DUBOIS Page [id number] at 1448 All edits/amendments must be made on the electronic document DICTATION DATE: 07/17/181446 CORPORATE LIBRARIAN: FRANK 07/17/181446 RPT#: [id number] DC DATE: STATUS: ADM IN [facility] [address] [place] [address] END OF REPORT
--- NOTE | 2018-07-17 17:57 | NUR ---
DISCHARGE INSTRUCTIONS GIVEN TO LIFENET IN PACKET. LEFT IV IN PLACEMENT. LEFT WITH [facility] TO GO TO OTHER HOSPITAL. DENIES ANY OTHER NEED AT THIS TIME. NO SIGNS OF DISTRESS.
--- NOTE | 2018-07-18 14:18 | MORECARE ---
CASE MANAGEMENT DISCHARGE SUMMARY PATIENT: JERAMY DUBOIS UNIT: [id number] ADM DATE: 07/07/18 AGE: 68 : 54 SEX: M ROOM/BED: D.1209 AUTHOR: LAURA,DOC PHYSICIAN: REFERRING PHYSICIAN: MARCI MARADIAGA MD DATE OF SERVICE: 07/18/18 Discharge Plan Patient Name: JERAMY DUBOIS Facility: [facility]:[place] : 1950 Planned Disposition: Halfway Facility Anticipated Discharge Date: Discharge Date: 07/17/2018 Expected LOS: Initial Reviewer: [email or web address] Initial Review Date: 07/07/2018 Generated: 07/18/18 3:18 pm Comments DCP- Discharge Planning Updated by [email or web address]: Lawanda Thorpe on 07/17/18 1:[address] CM received call from Clare with [facility]. Patient has been accepted to room 428. Nurse to call report to [phone]. CM informed patient's nurse. DCP- Discharge Planning Updated by [id number]: Lawanda Thorpe on 07/17/18 10:[address] CM called [facility] bed control to check status of bed for transfer. Spoke with Danika who infomred that she had beds available and will call Dr. Maradiaga to make sure he is still willing to accept patient. CM notified citlali's nurse on status of transfer. CM will continue to follow and assist as needed with discharge planning / needs. DCP- Discharge Planning Updated by [email or web address]: Marline Lucio on 07/16/18 11:[address] LATE ENTRY 1056 WHILE REVIEWING CM NOTES SAW PATIENT FOR POSSIBLE TRANSFER TO [facility] [place]. TC TO [facility]. SPOKE WITH MERISSA IN BED CONTROL/ GROUP BURNER MACHINE. SHE HAS NO MED/ SURG BEDS AVAILABLE AND THEY ARE ON ER DIVERSION. [facility] CANNOT ACCEPT TODAY. ADVISED SREEKNATH, CHARGE NURSE. TO RE-EVAL IN THE AM. DCP- Discharge Planning Updated by [email or web address]: Lawanda Thorpe on 07/15/18 8:[address] CM notified by nurse that patient wants to transfer to [facility]. States he never wanted to come to [facility]. CM called [employer] for administrative approval. Spoke with Nara. Admin approval obtained. Called Dr. Maradiaga and informed him of request to transfer. is agreeable and plans to follow patient at receiving hospital. CM called [facility] bed control. Spoke with Merissa about request for lateral transfer. Awaiting determination. Informed patient on status of transfer and that patient would be financially responsible for ambulance transport to [facility] d/t lateral transfer. Patient verbalized understanding and satisfaction with discharge plan. Awaiting acceptance. CM will continue to follow and assist as needed with discharge planning / needs. DCP- Discharge Planning Updated by [email or web address]: Marline Lucio on 07/08/18 10:[address] PATIENT ADMITTED FROM [facility]. TELEPHONE CALL TO THE [facility] NURSING AND REH[facility]. KENNETH SPOKE WITH RAMON. SHE STATES THE PATIENT IS IN A MEDICARE A BED. SHE EXPECTS HE WILL RETURN UNLESS HIS DAUGHTER, JASON, DECIDES DIFFERENTLY. [facility] [phone]. WILL SPEAK WITH THE PATIENT'S DAUGHTER TO CONFIRM THE PLAN. Last DP export: 07/17/18 1:48 pm Patient Name: JERAMY DUBOIS Page [id number] at 1418 All edits/amendments must be made on the electronic document DICTATION DATE: 07/18/181416 PSYCHODRAMATIST: FRANK 07/18/181416 RPT#: [id number] DC DATE:07/17/18 STATUS: DIS IN [facility] [address] [place] [address] END OF REPORT
== END 2018-07-17 18:00 | DRG 871 ==
LOC: D.ER 13:56 → D.M3 20:35
PROVIDERS: Family Medicine; ADMIT Family Medicine
DX: A41.9 Sepsis, unspecified organism (principal); L89.154 Pressure ulcer of sacral region, stage 4; J69.0 Pneumonitis due to inhalation of food and vomit; R53.2 Functional quadriplegia; N39.0 Urinary tract infection, site not specified; M46.28 Osteomyelitis of vertebra, sacral and sacrococcygeal region; L03.115 Cellulitis of right lower limb; F41.9 Anxiety disorder, unspecified; F32.9 Major depressive disorder, single episode, unspecified; N20.0 Calculus of kidney; N21.0 Calculus in bladder; Z87.891 Personal history of nicotine dependence; L89.620 Pressure ulcer of left heel, unstageable